=== PATIENT | male | born 1970 | race Caucasian/White ===

== ENCOUNTER 2017-12-05 18:26 | Inpatient (IN) ==
[2017-12-05] MEDS ORDERED: Haloperidol Lactate 5 MG/ML VIAL IM PRN (18:45)
[2017-12-05] MEDS ORDERED: MOM Conc 10 ML UD.LIQ PO PRN (18:45)
[2017-12-05] MEDS ORDERED: Mag Hydrox/Al Hydrox/Simeth 30 ML UDC PO PRN (18:45)
[2017-12-05] MEDS ORDERED: *HR* LORazepam 2 MG/ML VIAL IM PRN (18:45)
[2017-12-05] MEDS ORDERED: Acetaminophen 325 MG TABLET PO PRN (18:45)
[2017-12-05] MEDS ORDERED: *HR* LORazepam 1 MG TABLET PO PRN (18:45)
[2017-12-05] MEDS: traZODone 50 MG TABLET PO PRN (20:10)
[2017-12-05] MEDS: hydrOXYzine pamoate 25 MG CAPSULE PO PRN (20:10)
[2017-12-06] MEDS: Nicotine 21 MG PATCH.TD24 TD SCH (09:09)
[2017-12-06] MEDS: Nicotine 2 MG GUM BC PRN ×3 (10:30→19:10)
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
[2017-12-06] MEDS: BuPROPion SR (12 HR) 100 MG TABLET PO SCH ×2 (11:50→21:02)
[2017-12-06 14:03] LABS: Hepatitis B Surface Antigen Nonreactive (Nonreactive)
[2017-12-06] MEDS: hydrOXYzine pamoate 25 MG CAPSULE PO PRN (19:10)
[2017-12-06] MEDS: traZODone 50 MG TABLET PO PRN (21:02)
[2017-12-07 05:28] LABS: Hepatitis A Antibody IgM Nonreactive (Nonreactive); Hepatitis B Core IgM Nonreactive (Nonreactive)
[2017-12-07 05:43] LABS: Hepatitis C Virus Antibody Reactive (Nonreactive)
[2017-12-07] MEDS: Nicotine 2 MG GUM BC PRN ×4 (08:56→21:01)
[2017-12-07] MEDS: BuPROPion SR (12 HR) 100 MG TABLET PO SCH ×2 (08:56→21:02)
[2017-12-07] MEDS: Nicotine 21 MG PATCH.TD24 TD SCH (10:18)
[2017-12-07] MEDS: hydrOXYzine pamoate 25 MG CAPSULE PO PRN ×2 (11:48→21:02)
--- NOTE | 2017-12-07 14:48 | Psychiatry Progress Note ---
Date of Encounter: 12/07/17 Time of Encounter: 14:40 Subjective Interval history: When I asked the patient how he is doing today he tells me "I am alright". He denies any adverse side effects of the Wellbutrin. He states that he slept approximate 2 hours total last evening, which has been consistently reported by him outpatient prior to admission. He states that he woke up feeling depressed this morning; santana and at times crying. This is not unusual for him, "mornings are bit worse than any other time of the day". I discussed with them using the PRN Trazodone and Vistaril to help with his sleep. He tells me he will give that a try to see if it helps. He states that he feels like he just cannot calm down, especially at night when he is trying to go to sleep. "I can' t shut my mind off. He denies any active suicidal/homicidal ideation, but states that he does not overall feel much better than he did upon admission. He still feels fairly helpless and hopeless, but is willing to give the medication on a try. He denies any auditory or visual hallucinations. He has showered and is eating meals and interacting with others on the unit. Staff report him to be uncooperative and irritable in the mornings, especially. Objective: Exam Patient orientation: Yes Person, Yes Time, Yes Place, Yes Circumstance Level of alertness: Alert Patient appearance: Well Groomed Behavior: anxious Psychomotor activity: Normal Eye contact: Maintains Eye Contact Mood description: Depressed Affect description: congruent with mood Speech pattern: Normal rate, Normal rhythm, Normal tone Speech volume: Normal Thought process: Intact, Logical, Linear Thought content: Yes Suicidal ideation (no active plans) Judgment: Fair Insight: Partial Results - Vital Signs Vital Signs: Temp Pulse Resp BP 97.2 F L 61 18 115/76 12/07/17 08:48 12/07/17 08:48 12/07/17 08:48 12/07/17 08:48 - Labs Labs: Laboratory Results - last 24 hr 12/06/17 12/06/17 13:08 13:08 Hepatitis A IgM Ab Nonreactive Hep B Core IgM Ab Nonreactive Hepatitis C Ab Screen Reactive H HIV Ag/Ab Combo Qual Nonreactive - Impressions Will continue to monitor patient on the unit for S/S of his mental health. It is appearing that he may possibly be Bipolar as I continue to learn and observe more with him and he is better able to give more information and details. It would also appear that he does have Hepatitis C from his lab work. I will discuss this with him further and get follow up arranged with medical. Assessment and Plan (1) Major depression, recurrent, chronic Current visit: Yes Status: Acute Plan: Continue hospitalization, Close observation, Suicide Precautions per unit protocol, Encourage participation in unit milieu, Group Therapy, Monitor sleep, Monitor appetite Risks, benefits, side effects, alternatives discussed w/pt: Yes (Continue Wellbutrin and encourage PRN usage) Patient agreeable to treatment: Yes (2) Post traumatic stress disorder (PTSD) Current visit: Yes Status: Acute Plan: Continue hospitalization, Close observation Risks, benefits, side effects, alternatives discussed w/pt: Yes Patient agreeable to treatment: Yes (3) Amphetamine abuse, episodic Current visit: Yes Status: Acute Plan: Close observation Risks, benefits, side effects, alternatives discussed w/pt: Yes Patient agreeable to treatment: Yes Consult Discharge Plan - Plan [facility]errals: [facility] [Outside] (You are going into mental health respite at [facility] on discharge from the hospital. While there, clinic staff will open a case for you to become a client, and you will be seen daily by the clinic counselors and mattress spring encaser, both individually and in group. You will also be scheduled to see the psychiatric provider for outpatient psychiatric assessment and medication management.)
[2017-12-07] MEDS: traZODone 50 MG TABLET PO PRN (21:01)
[2017-12-08] MEDS: hydrOXYzine pamoate 25 MG CAPSULE PO PRN ×3 (07:06→20:36)
[2017-12-08] MEDS: Nicotine 2 MG GUM BC PRN ×4 (07:08→18:23)
[2017-12-08] MEDS: BuPROPion SR (12 HR) 100 MG TABLET PO SCH ×2 (08:01→20:36)
--- NOTE | 2017-12-08 13:27 | Psychiatry Progress Note ---
Date of Encounter: 12/08/17 Time of Encounter: 13:00 Subjective Interval history: When asked the patient how things are he tells me "same as yesterday, no sleep" . He tells me that he used the PRN's of trazodone Vistaril, but they did not help. He states that he continues to have racing thoughts, especially at night , and feels very anxious throughout the day. He is not experiencing nightmares spcifically at night currently. He denies any active suicidal ideation, but states that he still feels depressed and very santana. He denies any auditory or visual hallucinations. I spoke with him about possibly adding some medication to help with sleep that would also help with his mood. We discussed that discuss the use of Seroquel. I discussed starting at a low-dose 50 mg at night instead of taking the trazodone, targeting his mood and it would potentially help him sleep. I also advised him to use a low-dose 25 mg PO during the day has needed when he felt agitated, to see if it helped calm his mood and calm his mind. He was agreeable to doing this after reviewing the risks benefits and side effects. Objective: Exam Patient orientation: Yes Person, Yes Time, Yes Place, Yes Circumstance Level of alertness: Alert Patient appearance: Appropriate, Well Groomed Behavior: anxious Psychomotor activity: Agitated (mildly) Eye contact: Maintains Eye Contact Mood description: Depressed Affect description: congruent with mood Speech pattern: Normal rate, Normal rhythm, Normal tone Speech volume: Normal Thought process: Intact, Logical, Linear Thought content: Yes Intact Judgment: Fair Insight: Partial Results - Vital Signs Vital Signs: Temp Pulse Resp BP 97.6 F 62 16 119/78 12/08/17 08:06 12/08/17 08:06 12/08/17 08:06 12/08/17 08:06 - Impressions R/O Bipolar Disorder Assessment and Plan (1) Major depression, recurrent, chronic Current visit: Yes Status: Acute Risks, benefits, side effects, alternatives discussed w/pt: Yes (Start Wellbutrin) Patient agreeable to treatment: Yes (2) Post traumatic stress disorder (PTSD) Current visit: Yes Status: Acute Risks, benefits, side effects, alternatives discussed w/pt: Yes Patient agreeable to treatment: Yes (3) Amphetamine abuse, episodic Current visit: Yes Status: Acute Risks, benefits, side effects, alternatives discussed w/pt: Yes Patient agreeable to treatment: Yes Consult Discharge Plan - Plan Referrals: [facility] [Outside] (You are going into mental health respite at [facility] on discharge from the hospital. While there, clinic staff will open a case for you to become a client, and you will be seen daily by the clinic counselors and case operator, both individually and in group. You will also be scheduled to see the psychiatric provider for outpatient psychiatric assessment and medication management.)
[2017-12-08] MEDS: traZODone 50 MG TABLET PO PRN (20:36)
[2017-12-09] MEDS: hydrOXYzine pamoate 25 MG CAPSULE PO PRN ×3 (02:59→20:01)
[2017-12-09] MEDS: Nicotine 2 MG GUM BC PRN ×2 (08:15→20:01)
[2017-12-09] MEDS: BuPROPion SR (12 HR) 100 MG TABLET PO SCH ×2 (08:15→20:01)
--- NOTE | 2017-12-09 13:27 | Psychiatry Progress Note ---
Date of Encounter: 12/09/17 Time of Encounter: 13:15 Subjective Interval history: Patient tells me that he slept better last night with the addition of Seroquel. He slept approximate 5 hours from 10:00 pm to about 3:00 in the morning. He felt tired and went to sleep without issue. Once he woke up, he could not go back to sleep easily. He denies any side effects of the Seroquel. He states that he is still having some anxiety; feels agitated during the day. He notices hes very irritable around others on the unit, staff and other peers included. "I've not cussed anybody yet today, but I feel like it". He denies any auditory or visual hallucinations. Depression is still present, but he is not as hopeless as he was. No active suicidal plan. He was encouraged to use prn's for his agitation. Objective: Exam Patient orientation: Yes Person, Yes Time, Yes Place, Yes Circumstance Level of alertness: Alert Patient appearance: Appropriate, Well Groomed Behavior: anxious, tearful Psychomotor activity: Normal Eye contact: Maintains Eye Contact Mood description: Depressed, Anxious Affect description: congruent with mood Speech pattern: Normal rate, Normal rhythm, Normal tone Speech volume: Normal Thought process: Intact, Linear Thought content: Yes Intact Judgment: Fair Insight: Partial Results - Vital Signs Vital Signs: Temp Pulse Resp BP 97.4 F L 61 18 118/82 12/09/17 08:14 12/09/17 08:14 12/09/17 08:14 12/09/17 08:14 Assessment and Plan (1) Post traumatic stress disorder (PTSD) Current visit: Yes Status: Acute Risks, benefits, side effects, alternatives discussed w/pt: Yes Patient agreeable to treatment: Yes (2) Amphetamine abuse, episodic Current visit: Yes Status: Acute Risks, benefits, side effects, alternatives discussed w/pt: Yes Patient agreeable to treatment: Yes (3) Bipolar disorder, mixed Current visit: Yes Status: Acute Plan: Continue hospitalization, Close observation, Suicide Precautions per unit protocol, Encourage participation in unit milieu, Group Therapy, Monitor sleep Risks, benefits, side effects, alternatives discussed w/pt: Yes (Continue Seroquel for mood stabilization) Patient agreeable to treatment: Yes Consult Discharge Plan - Plan Referrals: [facility] [Outside] (You are going into mental health respite at [facility] on discharge from the hospital. While there, clinic staff will open a case for you to become a client, and you will be seen daily by the clinic counselors and case monitor, both individually and in group. You will also be scheduled to see the psychiatric provider for outpatient psychiatric assessment and medication management.)
[2017-12-09] MEDS: traZODone 50 MG TABLET PO PRN (20:01)
[2017-12-10] MEDS: BuPROPion SR (12 HR) 100 MG TABLET PO SCH ×2 (08:41→20:53)
[2017-12-10] MEDS: Nicotine 2 MG GUM BC PRN ×3 (08:41→20:53)
--- NOTE | 2017-12-10 12:38 | Psychiatry Progress Note ---
Date of Encounter: 12/10/17 Time of Encounter: 10:20 Subjective Interval history: Patient tells me "I feel tons better". He states that he continues to improve on his sleeping, noticing the better that he sleeps the better his mood becomes. (his observation/interpretation) He also is taken Seroquel 25 mg PO during the day to help with his agitation, anxiety and mood stabilization. He believes that an increase in the Seroquel to 100 mg at night he would not use the trazodone anymore and would still sleep well. I question whether the agitation during the day might be related to Akathesia from the antipsychotic. I encouraged him to use Cogentin as a PRN to see if it helped. He denies any active suicidal or homicidal ideation. He does have passive thoughts of dying still. He is eating fine and participating sporadically on the unit with groups. He is less angry today with one of the other patients on the unit because he believes he is discharging. He talks to me about people not being appropriate and that their are right things and wrong thing in how one behaves. Talks about his intolerant [id number] thinking, not being open to things outside of his thought and how he believes things should be. He struggles with signing in voluntarily, 72 hour hold is up today. His thinking is that, if he does sign in voluntarily, that he is going to be stuck here for 2 weeks or longer and has no control over his discharge. I explained to him that he was stabilizing and it was not any kind of trick to have him sign in. That with the further adjustments in his medication, most likely he would be discharged within the next day or 2. He finally ended up signing in voluntarily. No auditory or visual hallucinations. No other complaints. Objective: Exam Patient orientation: Yes Person, Yes Time, Yes Circumstance Level of alertness: Alert Patient appearance: Appropriate, Well Groomed Behavior: anxious, agitated Psychomotor activity: Normal Eye contact: Fleeting Contact Mood description: Anxious Affect description: congruent with mood Speech pattern: Normal rate, Normal rhythm, Normal tone Speech volume: Normal Thought process: Intact Thought content: Yes Suicidal ideation (fleeting thoughts but no intent or plan. ) Judgment: Fair Insight: Partial Results - Vital Signs Vital Signs: Temp Pulse Resp BP 97.7 F 72 18 118/77 12/10/17 09:00 12/10/17 09:00 12/10/17 09:00 12/10/17 09:00 Assessment and Plan (1) Post traumatic stress disorder (PTSD) Current visit: Yes Status: Acute Risks, benefits, side effects, alternatives discussed w/pt: Yes Patient agreeable to treatment: Yes (2) Amphetamine abuse, episodic Current visit: Yes Status: Acute Risks, benefits, side effects, alternatives discussed w/pt: Yes Patient agreeable to treatment: Yes (3) Bipolar disorder, mixed Current visit: Yes Status: Acute Plan: Continue hospitalization, Close observation, Suicide Precautions per unit protocol, Encourage participation in unit milieu, Group Therapy, Monitor sleep Risks, benefits, side effects, alternatives discussed w/pt: Yes (Increase Seroquel for mood stabilization) Patient agreeable to treatment: Yes Consult Discharge Plan - Plan Referrals: [facility] [Outside] (You are going into mental health respite at [facility] on discharge from the hospital. While there, clinic staff will open a case for you to become a client, and you will be seen daily by the clinic counselors and medical case manager, both individually and in group. You will also be scheduled to see the psychiatric provider for outpatient psychiatric assessment and medication management.)
[2017-12-10] MEDS: hydrOXYzine pamoate 25 MG CAPSULE PO PRN ×2 (16:54→20:53)
[2017-12-10] MEDS: traZODone 50 MG TABLET PO PRN (20:53)
[2017-12-11] MEDS: BuPROPion SR (12 HR) 100 MG TABLET PO SCH (08:28)
[2017-12-11 09:26] VITALS: BP 115/74
[2017-12-11] MEDS: Nicotine 2 MG GUM BC PRN (10:50)
--- NOTE | 2017-12-11 11:30 | Discharge Summary ---
Date of Encounter: 12/11/17 Time of Encounter: 11:10 Diagnosis - Discharge Diagnosis (1) Post traumatic stress disorder (PTSD) Status: Acute (2) Amphetamine abuse, episodic Status: Acute (3) Bipolar disorder, mixed Status: Acute Medications - Discharge Medications Prescriptions: Benztropine [Cogentin] 1 mg PO Q4H PRN 30 Days #60 tablet PRN Reason: Extrapyramidal Effects BuPROPion SR (12 HR) [Wellbutrin SR] 100 mg PO BID 30 Days #60 tablet.er hydrOXYzine pamoate [HydrOXYzine Pamoate] 25 mg PO TID PRN 30 Days #90 capsule PRN Reason: Anxiety Quetiapine Fumarate [Seroquel] 25 mg PO QDPC PRN 30 Days #30 tablet PRN Reason: Agitation Quetiapine Fumarate [Seroquel] 100 mg PO HS 30 Days #30 tablet Benztropine [Cogentin] 1 mg PO Q4H PRN 30 Days #60 tablet 12/11/17 [Rx] BuPROPion SR (12 HR) [Wellbutrin SR] 100 mg PO BID 30 Days #60 tablet.er [Rx] Quetiapine Fumarate [Seroquel] 25 mg PO QDPC PRN 30 Days #30 tablet 12/11/17 [Rx ] Quetiapine Fumarate [Seroquel] 100 mg PO HS 30 Days #30 tablet 12/11/17 [Rx] hydrOXYzine pamoate [HydrOXYzine Pamoate] 25 mg PO TID PRN 30 Days #90 capsule 12/11/17 [Rx] 3 Allergy/AdvReac Type Severity Reaction Status Date / Time No Known Allergies Allergy Verified 12/05/17 18:44 Results Procedures and tests throughout hospitalization: Completed Lab Orders Category Date Time Status HIV-1&2 Antibody & p24 Ag Stat Lab 12/06/17 13:08 Completed Viral hepatitis panel [Hepatitis Prof.(Routine A,B,C)] Lab 12/06/17 13:08 Completed Routine - Impressions Hepatitis C/Newly diagnosed: Appointment scheduled for follow up and medical evaluation. Discussed with patient. Most likely got it in residential from residential tattoo. Uses clean needles for drugs, historically. Provider Date of admission: 12/05/17 18:26 Primary care physician: PCP NONE Assessment and Plan - Patient/Caregiver Discharge Instructions Activity: resume usual activities as tolerated Diet: regular diet - Follow up Plan Follow up with: [facility] [Outside] (You are going into mental health respite at [facility] on discharge from the hospital. While there, clinic staff will open a case for you to become a client, and you will be seen daily by the clinic counselors and supportive employment case manager, both individually and in group. You will also be scheduled to see the psychiatric provider for outpatient psychiatric assessment and medication management.) Tanja De La Fuente [Advanced Practice Nurse] - 12/17/17 11:00 am (The above appointment is with Tanja De La Fuente CNP, at [facility]. This appointment is to establish you with a primary care provider. Your needs for medication and/or Vivitrol will be assessed and treated as indicated as well. Please arrive 15 minutes early to complete paperwork. Please bring your insurance card, photo ID and list of current medications to your first appointment. The above appointment(s) reflects first availability. You may contact the office regularly to check for cancellations that may allow you to be seen sooner.) Functional capacity at discharge: independent ambulation Overall status at discharge: Stable Disposition: Transfer Other Hospital Course Hospital course: Mr. Aguirre is a 47 year old male who was admitted after having an unstable mood and that's of self harm. He had a history of amphetamine abuse and unstable depressed and agitated mood. He had recent losses in his life of of spouse and feelings of being worthless. He had negative self talk and decreased sleeping ability. Medications were started and adjusted targeting his mood. Seroquel helped with his day time agitation as a prn during the day and was titrated up at night to help with his sleep. He still had struggles with staff and feeling irritable and questioning why he was in the hospital and where his future was going. Eventually it helped with his sleeping allowing him to get a solid 5 hours the night prior to discharge. "It's a helluva lot better than what I was getting." The Wellbutrin was added targeting his depression and feelings of low energy and feeling hopeless. He noted the day of discharge that "I am feeling better." He reported his depression had decreased "greatly". He had more energy and was thinking about the future and doing things he had not done in a long time. His anhedonia was resolving and his energy and forward thinking were improving. Juan Jose helped with his anxiety at times which may have been akathesia. He was discharging to [facility] for further monitoring and treatemnt as he did not want to discharge home and could get further counseling and drug counseling and more coping skills. He denied SI/SIB/HI. He denied mood swings and A/V hallucinations. WE discussed him working further on his negative self talk while at [facility]. Time spent discussing smoking cessation with patient: 3 to 10 minutes Does patient wish to continue nicotine replacement upon disc: No - Time Spent with Patient Total time spent providing and/or coordinating discharge services: 25 min Less than 30 minutes Quality - Multiple Antipsychotics Patient discharged on 2 or more antipsychotic medications: No Procedures - Procedures Procedures: Medication Management, Crisis Stabilization, Supportive Therapy, Group Therapy, Psychoeducational Therapy Mental Status Exam - Mental Status Exam Patient orientation: Yes Person, Yes Time, Yes Place, Yes Circumstance Level of alertness: Alert Patient appearance: Appropriate, Well Groomed Behavior: nervous Psychomotor activity: Normal Eye contact: Maintains Eye Contact Mood description: Euthymic/stable Patient description of mood: "I'm feeling better" Affect description: congruent with mood Speech pattern: Normal rate, Normal rhythm, Normal tone, Appropriate Speech Volume: Normal Thought process: Intact, Linear, Goal Oriented Thought Content: Yes Intact Judgment: Good Insight: Partial
== END 2017-12-11 12:55 | disposition other institution (70) | DRG 753 ==
LOC: 1ANU 18:26
PROVIDERS: ADMIT Psychiatry & Neurology Psychiatry; ATTEND Psychiatry & Neurology Psychiatry

== ENCOUNTER 2018-03-13 11:28 | Inpatient (IN) ==
[2018-03-13 12:35] LABS: Basophils # 0.1 K/mcL (0.0-0.2); Basophils % 0.7 %; Eosinophils # 0.2 K/mcL (0.0-0.6); Eosinophils % 3.1 %; Hematocrit 42.2 % (37.5-50.1); Hemoglobin 14.1 g/dL (12.9-16.9); Immature Granulocytes % 0.1 % (0-4); Lymphocytes # 3.5 K/mcL (0.6-4.6); Lymphocytes % 49.4 %; Mean Corpuscular HGB Conc 33.4 g/dL (31.6-35.5); Mean Corpuscular Hemoglobin 29.5 pg (28.0-33.3); Mean Corpuscular Volume 88.3 fL (83.0-100.0); Mean Platelet Volume 9.4 fL (9.4-12.4); Monocytes # 0.5 K/mcL (0.0-1.3); Monocytes % 6.9 %; Neutrophils # 2.8 K/mcL (1.6-8.9); Platelet Count 233 K/mcL (140-400); Red Blood Count 4.78 M/mcL (4.19-5.50); Red Cell Distribution Width 12.3 % (11.5-14.5); Segmented Neutrophils % 39.8 %
--- NOTE | 2018-03-13 13:00 | Emergency Department Note ---
Disposition Clinical Impression: Homicidal ideation, Suicidal ideation, Auditory hallucinations Disposition: Admitted As Inpatient Condition: Good Referrals: NONE,PCP [Primary Care Provider] - Forms: ED Satisfaction Letter Psych HPI - General Chief Complaint: ED Psychiatric Symptoms Stated Complaint: psych Time Seen by Provider: 03/13/18 11:42 Source: patient Mode of arrival: private vehicle Limitations: no limitations Nursing Notes Reviewed: Yes Vital Signs Reviewed: Yes - History of Present Illness HPI Narrative: 48-year-old male history of depression, schizoaffective disorder presents to the ER with a chief complaint of homicidal and suicidal ideation. Patient states his depression has been worsening lately despite taking his medications. States that this happened before requiring hospitalization when he was having thoughts of harming himself and others. He also reports chronic auditory and visual hallucinations. He states that he has been taking his medications. Reports a prior history of alcohol abuse but nothing recently. He also states that he used ice 2 days ago. Denies any ingestions. Denies any recent illnesses. No other complaints. Pt complaint: suicidal ideation Onset (ago): week(s) Duration: constant History of similar episodes: Yes Improves with: none Worsens with: none Alleged intoxication: No Associated Psychiatric Symptoms: depression, suicidal ideation, homicidal ideation, racing thoughts, auditory hallucinations, visual hallucinations Associated symptoms: Reports: denies other symptoms Traumatic symptoms: denies traumatic injury Treatments prior to arrival: none Self harm or harm to others: admits thoughts of self harm, admits thoughts of harming others - Related Data Home Medications Medication Instructions Recorded Confirmed BuPROPion XL (24 HR) [Wellbutrin 300 mg PO DAILY 03/13/18 03/13/18 XL] Quetiapine Fumarate [SEROquel] 25 mg PO QAM 03/13/18 03/13/18 Quetiapine Fumarate [SEROquel] 225 mg PO HS 03/13/18 03/13/18 cloNIDine HCl [CloNIDine HCl] 0.1 mg PO DAILY 03/13/18 03/13/18 hydrOXYzine pamoate [HydrOXYzine 50 mg PO TID PRN 03/13/18 03/13/18 Pamoate] Allergies Allergy/AdvReac Type Severity Reaction Status Date / Time No Known Allergies Allergy Verified 03/13/18 15:20 All systems ED: reviewed and negative except as stated. Gastrointestinal: Denies: nausea, vomiting Neurological: Denies: headache Psychiatric: Reports: depression, suicidal thoughts, homicidal thoughts, auditory hallucinations, visual hallucinations Past Medical History - Past Medical History Attestation: Yes The following information was validated with the patient. Source: patient Medical history: Reports: hypertension, other Surgical history: Reports: cholecystectomy Psychiatric history: Reports: depression, prior suicide attempt, previous psychiatric hospitalization - Social History Smoking Status: Current every day smoker Smokeless Tobacco Status: No Alcohol use: Reports: occasionally Drug use: Reports: cocaine, opiates, marijuana, methamphetamine, IV Drug Use Physical Exam - General Limitations: no limitations General appearance: alert, anxious - Head Head exam: atraumatic, normocephalic - Eye Eye exam: Present: normal appearance - ENT ENT exam: normal exam - Neck Neck exam: Present: normal inspection - Chest Chest inspection: Present: normal inspection, symmetric chest wall rise - Respiratory Respiratory exam: Present: normal lung sounds bilaterally - Cardiovascular Cardiovascular exam: Present: regular rate, normal rhythm, normal heart sounds - Abdominal Exam Abdominal exam: Present: soft, Non-Tender. Absent: tenderness - Extremities Exam Extremities exam: Present: normal inspection, full ROM - Expanded Upper Extremity Exam Shoulder exam: Present: normal inspection, full ROM Arm exam: Present: normal inspection, full ROM Elbow exam: Present: normal inspection, full ROM Forearm/Wrist exam: Present: normal inspection, full ROM Hand exam: Present: normal inspection, full ROM - Expanded Lower Extremity Exam Hip/Pelvis exam: Present: normal inspection, full ROM Upper leg exam: Present: normal inspection, full ROM Knee exam: Present: normal inspection, full ROM Lower leg exam: Present: normal inspection, full ROM Ankle exam: Present: normal inspection, full ROM Foot/toe exam: Present: normal inspection, full ROM - Psychiatric Psychiatric exam: Present: anxious, homicidal ideation, suicidal ideation - Expanded Psychiatric Exam Expanded psych exam: Present: poor eye contact, restlessness - Skin Skin exam: Present: warm, dry Course Course Narrative: Patient seen and examined. [employer] slipped signed for homicidal and suicidal ideation. We will get screening labs for medical clearance and discussed with psychiatry for ED evaluation. Vital Signs Temperature 98.2 F 03/13/18 11:36 Pulse Rate 81 03/13/18 11:36 Respiratory Rate 16 03/13/18 11:36 Blood Pressure 132/83 03/13/18 11:36 O2 Sat by Pulse Oximetry 96 03/13/18 11:36 Temperature 98.2 F 03/13/18 11:36 Pulse Rate 81 03/13/18 11:36 Respiratory Rate 16 03/13/18 11:36 Blood Pressure 132/83 03/13/18 11:36 O2 Sat by Pulse Oximetry 96 03/13/18 11:36 Oxygen Delivery Oxygen Delivery Room Air Psych - MDM Narrative Medical decision making narrative: Presenting with suicidal and homicidal ideation. Prior psychiatric history. Medically cleared here. Deemed appropriate for inpatient management. Admitted to the psychiatric service. - Lab Data Lab results reviewed: Yes I reviewed the patient's lab results. Result diagrams: 03/13/18 12:22 03/13/18 12:22 Lab Results 03/13/18 03/13/18 03/13/18 Range/Units 12:22 12:22 12:52 WBC 7.1 (4.3-11.1) K/mcL RBC 4.78 (4.19-5.50) M/mcL Hgb 14.1 (12.9-16.9) g/dL Hct 42.2 (37.5-50.1) % MCV 88.3 (83.0-100.0) fL MCH 29.5 (28.0-33.3) pg MCHC 33.4 (31.6-35.5) g/dL RDW 12.3 (11.5-14.5) % Plt Count 233 (140-400) K/mcL MPV 9.4 (9.4-12.4) fL Immature Gran % 0.1 (0-4) % Seg Neutrophils % 39.8 % Lymphocytes % 49.4 % Monocytes % 6.9 % Eosinophils % 3.1 % Basophils % 0.7 % Neutrophils # 2.8 (1.6-8.9) K/mcL Lymphocytes # 3.5 (0.6-4.6) K/mcL Monocytes # 0.5 (0.0-1.3) K/mcL Eosinophils # 0.2 (0.0-0.6) K/mcL Basophils # 0.1 (0.0-0.2) K/mcL Sodium 135 L (136-145) mEq/L Potassium 4.4 (3.5-5.1) mEq/L Chloride 108 H (98-107) mEq/L Carbon Dioxide 24 (23-29) mEq/L BUN 19 (6-20) mg/dL Creatinine 0.63 L (0.70-1.30) mg/dL Est GFR ( Amer) > 60 (> 60) Est GFR (Non-Af Amer) > 60 (> 60) BUN/Creatinine Ratio 30 H (6-26) Glucose 97 (70-105) mg/dL Calculated Osmolality 282 (280-300) Calcium 9.2 (8.6-10.3) mg/dL TSH 2.475 (0.340-5.600) mcIU/mL Urine Color Yellow (Yellow) Urine Clarity Cloudy A (Clear) Urine pH 6.0 (5.0-8.0) pH Units Ur Specific [place] > 1.030 H (1.010-1.025) Urine Protein Trace (Neg-Trace) mg/dL Urine Glucose (UA) Normal (Normal) mg/dL Urine Ketones Negative (Negative) mg/dL Urine Blood Negative (Negative) Urine Nitrite Negative (Negative) Urine Bilirubin Negative (Negative) Urine Urobilinogen Normal (Normal) mg/dL Ur Leukocyte Esterase Negative (Negative) Urine Microscopic RBC 5-15 H (0-3) per hpf Urine Microscopic WBC 5-15 H (0-3) per hpf Ur Squamous Epith Cells Moderate H (None-Few) per lpf Urine Bacteria None Seen (None-Few) per hpf Hyaline Casts None Seen (None-Few) per lpf Urine Sperm Present Salicylates < 2.5 L (15.0-30.0) mg/dL Urine Opiates Screen (Qwtwym=402) ng/mL Acetaminophen < 10 L (10-20) mcg/mL Ur Barbiturates Screen (Fbnsho=846) ng/mL Ur Phencyclidine Scrn (Cutoff=25) ng/mL Ur Amphetamines Screen (Gibtje=0090) ng/mL U Benzodiazepines Scrn (Kfrzvm=865) ng/mL Urine Cocaine Screen (Cutoff= 300) ng/mL U Marijuana (THC) Screen (Cutoff = 50) ng/mL Ethyl Alcohol < 10 (Less than 10) mg/dL 03/13/18 Range/Units 12:53 WBC (4.3-11.1) K/mcL RBC (4.19-5.50) M/mcL Hgb (12.9-16.9) g/dL Hct (37.5-50.1) % MCV (83.0-100.0) fL MCH (28.0-33.3) pg MCHC (31.6-35.5) g/dL RDW (11.5-14.5) % Plt Count (140-400) K/mcL MPV (9.4-12.4) fL Immature Gran % (0-4) % Seg Neutrophils % % Lymphocytes % % Monocytes % % Eosinophils % % Basophils % % Neutrophils # (1.6-8.9) K/mcL Lymphocytes # (0.6-4.6) K/mcL Monocytes # (0.0-1.3) K/mcL Eosinophils # (0.0-0.6) K/mcL Basophils # (0.0-0.2) K/mcL Sodium (136-145) mEq/L Potassium (3.5-5.1) mEq/L Chloride (98-107) mEq/L Carbon Dioxide (23-29) mEq/L BUN (6-20) mg/dL Creatinine (0.70-1.30) mg/dL Est GFR ( Amer) (> 60) Est GFR (Non-Af Amer) (> 60) BUN/Creatinine Ratio (6-26) Glucose (70-105) mg/dL Calculated Osmolality (280-300) Calcium (8.6-10.3) mg/dL TSH (0.340-5.600) mcIU/mL Urine Color (Yellow) Urine Clarity (Clear) Urine pH (5.0-8.0) pH Units Ur Specific [place] (1.010-1.025) Urine Protein (Neg-Trace) mg/dL Urine Glucose (UA) (Normal) mg/dL Urine Ketones (Negative) mg/dL Urine Blood (Negative) Urine Nitrite (Negative) Urine Bilirubin (Negative) Urine Urobilinogen (Normal) mg/dL Ur Leukocyte Esterase (Negative) Urine Microscopic RBC (0-3) per hpf Urine Microscopic WBC (0-3) per hpf Ur Squamous Epith Cells (None-Few) per lpf Urine Bacteria (None-Few) per hpf Hyaline Casts (None-Few) per lpf Urine Sperm Salicylates (15.0-30.0) mg/dL Urine Opiates Screen Negative (Ficxjb=716) ng/mL Acetaminophen (10-20) mcg/mL Ur Barbiturates Screen Negative (Unfubo=729) ng/mL Ur Phencyclidine Scrn Negative (Cutoff=25) ng/mL Ur Amphetamines Screen Positive H (Chwejh=2471) ng/mL U Benzodiazepines Scrn Negative (Iaqqrj=967) ng/mL Urine Cocaine Screen Negative (Cutoff= 300) ng/mL U Marijuana (THC) Screen Negative (Cutoff = 50) ng/mL Ethyl Alcohol (Less than 10) mg/dL Psychiatric Medical Clearance - Medical Clearance Checklist Medical History: Major depression, recurrent, chronic (Acute) Post traumatic stress disorder (PTSD) (Acute) Amphetamine abuse, episodic (Acute) Bipolar disorder, mixed (Acute) Anxiety disorder (Inactive) Panic attacks (Inactive) Secondary hypertension (Inactive) No Social History Section defined Current Vitals: Last Vital Signs Temp 98.2 F 03/13/18 11:36 Pulse 81 03/13/18 11:36 Resp 16 03/13/18 11:36 BP 132/83 03/13/18 11:36 Pulse Ox 96 03/13/18 11:36 Psychiatric Lab Panel: Drug Levels and Toxicity 03/13/18 03/13/18 12:22 12:53 Urine Opiates Screen Negative Acetaminophen < 10 L Ur Barbiturates Screen Negative Ur Phencyclidine Scrn Negative Ur Amphetamines Screen Positive H U Benzodiazepines Scrn Negative Urine Cocaine Screen Negative U Marijuana (THC) Screen Negative Ethyl Alcohol < 10 Abnormal Labs: Abnormal lab results Sodium 135 mEq/L (136-145) L 03/13/18 12:22 Chloride 108 mEq/L (98-107) H 03/13/18 12:22 Creatinine 0.63 mg/dL (0.70-1.30) L 03/13/18 12:22 BUN/Creatinine Ratio 30 (6-26) H 03/13/18 12:22 Urine Clarity Cloudy (Clear) A 03/13/18 12:52 Ur Specific [place] > 1.030 (1.010-1.025) H 03/13/18 12:52 Urine Microscopic RBC 5-15 per hpf (0-3) H 03/13/18 12:52 Urine Microscopic WBC 5-15 per hpf (0-3) H 03/13/18 12:52 Ur Squamous Epith Cells Moderate per lpf (None-Few) H 03/13/18 12:52 Salicylates < 2.5 mg/dL (15.0-30.0) L 03/13/18 12:22 Acetaminophen < 10 mcg/mL (10-20) L 03/13/18 12:22 Ur Amphetamines Screen Positive ng/mL (Ezqixh=3018) H 03/13/18 12:53 Statement of Medical Clearance: I have evaluated the patient, reviewed diagnostic information, and certify that the patient's medical condition is sufficiently stable that transfer to the psychiatric unit does not pose a significant risk of deterioration.
[2018-03-13 13:03] LABS: Acetaminophen < 10 mcg/mL (10-20); BUN/Creatinine Ratio 30 (6-26); Blood Urea Nitrogen 19 mg/dL (6-20); Calcium 9.2 mg/dL (8.6-10.3); Carbon Dioxide 24 mEq/L (23-29); Chloride 108 mEq/L (98-107); Ethanol < 10 mg/dL (Less than 10); Glucose 97 mg/dL (70-105); Osmolality,Calculated 282 (280-300); Potassium 4.4 mEq/L (3.5-5.1); Salicylate < 2.5 mg/dL (15.0-30.0); Sodium 135 mEq/L (136-145); eGFR For African Americans > 60 (> 60); eGFR For Non-African Americans > 60 (> 60)
[2018-03-13 13:04] LABS: Bilirubin,Urine Negative (Negative); Blood,Urine Negative (Negative); Clarity,Urine Cloudy (Clear); Color,Urine Yellow (Yellow); Glucose,Urine (UA) Normal (Normal); Ketones,Urine Negative (Negative); Leukocyte Esterase,Urine Negative (Negative); Nitrite,Urine Negative (Negative); Protein,Urine Trace mg/dL (Neg-Trace); Specific Gravity,Urine > 1.030 (1.010-1.025); Urobilinogen,Urine Normal (Normal)
[2018-03-13 13:06] LABS: Bacteria,Urine None Seen per hpf (None-Few); Hyaline Casts,Urine None Seen per lpf (None-Few); Squamous Epithelial Cell,Urine Moderate per lpf (None-Few)
[2018-03-13 13:11] LABS: Sperm,Urine Present
[2018-03-13 13:12] LABS: Thyroid Stimulating Hormone 2.475 mcIU/mL (0.340-5.600)
[2018-03-13 13:47] LABS: Amphetamine Screen,Urine Positive ng/mL (Cutoff=1000); Barbiturate Screen,Urine Negative ng/mL (Cutoff=200); Benzodiazepines Screen,Urine Negative ng/mL (Cutoff=200); Cannabinoid Screen,Urine Negative ng/mL (Cutoff = 50); Cocaine Screen,Urine Negative ng/mL (Cutoff= 300); Opiate Screen,Urine Negative ng/mL (Cutoff=300); Phencyclidine Screen,Urine Negative ng/mL (Cutoff=25)
[2018-03-13] MEDS ORDERED: Ibuprofen 400 MG TABLET PO PRN (17:15)
[2018-03-13] MEDS ORDERED: Haloperidol Lactate 5 MG/ML VIAL IM PRN (17:15)
[2018-03-13] MEDS ORDERED: *HR* LORazepam 2 MG/ML VIAL IM PRN (17:15)
[2018-03-13] MEDS ORDERED: Mag Hydrox/Al Hydrox/Simeth 30 ML UDC PO PRN (17:15)
[2018-03-13] MEDS ORDERED: Nicotine 21 MG PATCH.TD24 TD SCH (17:15)
[2018-03-13] MEDS ORDERED: MOM Conc 10 ML UD.LIQ PO PRN (17:15)
[2018-03-13] MEDS: cloNIDine HCl 0.1 MG TABLET PO SCH (18:02)
[2018-03-13] MEDS: Nicotine 2 MG GUM BC PRN (18:02)
--- NOTE | 2018-03-13 18:09 | Emergency Department Note ---
Disposition Clinical Impression: Homicidal ideation, Suicidal ideation, Auditory hallucinations Disposition: Admitted As Inpatient Condition: Good General Adult HPI - General Chief complaint: ED Psychiatric Symptoms Stated complaint: psych Time Seen by Provider: 03/13/18 11:42 Source: patient Mode of arrival: private vehicle Limitations: no limitations - History of Present Illness Pain Scale: 0 - Related Data Home Medications Medication Instructions Recorded Confirmed BuPROPion XL (24 HR) [Wellbutrin 300 mg PO DAILY 03/13/18 03/13/18 XL] Quetiapine Fumarate [SEROquel] 25 mg PO QAM 03/13/18 03/13/18 Quetiapine Fumarate [SEROquel] 225 mg PO HS 03/13/18 03/13/18 cloNIDine HCl [CloNIDine HCl] 0.1 mg PO DAILY 03/13/18 03/13/18 hydrOXYzine pamoate [HydrOXYzine 50 mg PO TID PRN 03/13/18 03/13/18 Pamoate] Allergies Allergy/AdvReac Type Severity Reaction Status Date / Time No Known Allergies Allergy Verified 03/13/18 15:20 Gastrointestinal: Denies: nausea, vomiting Neurological: Denies: headache Psychiatric: Reports: depression, suicidal thoughts, homicidal thoughts, auditory hallucinations, visual hallucinations Past Medical History - Past Medical History Medical history: Reports: hypertension, other Surgical history: Reports: cholecystectomy Psychiatric history: Reports: depression, prior suicide attempt, previous psychiatric hospitalization - Social History Smoking Status: Current every day smoker Smokeless Tobacco Status: No Alcohol use: Reports: rarely Drug use: Reports: methamphetamine Physical Exam - General Limitations: no limitations General appearance: alert, anxious Course Vital Signs Temperature 98.2 F 03/13/18 11:36 Pulse Rate 81 03/13/18 11:36 Respiratory Rate 16 03/13/18 11:36 Blood Pressure 132/83 03/13/18 11:36 O2 Sat by Pulse Oximetry 96 03/13/18 11:36 Temperature 98.3 F 03/13/18 17:10 Pulse Rate 64 03/13/18 17:10 Respiratory Rate 18 03/13/18 17:10 Blood Pressure 125/84 03/13/18 17:10 O2 Sat by Pulse Oximetry 96 03/13/18 11:36 Oxygen Delivery Oxygen Delivery Room Air Medical Decision Making - Lab Data Result diagrams: 03/13/18 12:22 03/13/18 12:22 Lab Results 03/13/18 03/13/18 03/13/18 Range/Units 12:22 12:22 12:52 WBC 7.1 (4.3-11.1) K/mcL RBC 4.78 (4.19-5.50) M/mcL Hgb 14.1 (12.9-16.9) g/dL Hct 42.2 (37.5-50.1) % MCV 88.3 (83.0-100.0) fL MCH 29.5 (28.0-33.3) pg MCHC 33.4 (31.6-35.5) g/dL RDW 12.3 (11.5-14.5) % Plt Count 233 (140-400) K/mcL MPV 9.4 (9.4-12.4) fL Immature Gran % 0.1 (0-4) % Seg Neutrophils % 39.8 % Lymphocytes % 49.4 % Monocytes % 6.9 % Eosinophils % 3.1 % Basophils % 0.7 % Neutrophils # 2.8 (1.6-8.9) K/mcL Lymphocytes # 3.5 (0.6-4.6) K/mcL Monocytes # 0.5 (0.0-1.3) K/mcL Eosinophils # 0.2 (0.0-0.6) K/mcL Basophils # 0.1 (0.0-0.2) K/mcL Sodium 135 L (136-145) mEq/L Potassium 4.4 (3.5-5.1) mEq/L Chloride 108 H (98-107) mEq/L Carbon Dioxide 24 (23-29) mEq/L BUN 19 (6-20) mg/dL Creatinine 0.63 L (0.70-1.30) mg/dL Est GFR ( Amer) > 60 (> 60) Est GFR (Non-Af Amer) > 60 (> 60) BUN/Creatinine Ratio 30 H (6-26) Glucose 97 (70-105) mg/dL Calculated Osmolality 282 (280-300) Calcium 9.2 (8.6-10.3) mg/dL TSH 2.475 (0.340-5.600) mcIU/mL Urine Color Yellow (Yellow) Urine Clarity Cloudy A (Clear) Urine pH 6.0 (5.0-8.0) pH Units Ur Specific [place] > 1.030 H (1.010-1.025) Urine Protein Trace (Neg-Trace) mg/dL Urine Glucose (UA) Normal (Normal) mg/dL Urine Ketones Negative (Negative) mg/dL Urine Blood Negative (Negative) Urine Nitrite Negative (Negative) Urine Bilirubin Negative (Negative) Urine Urobilinogen Normal (Normal) mg/dL Ur Leukocyte Esterase Negative (Negative) Urine Microscopic RBC 5-15 H (0-3) per hpf Urine Microscopic WBC 5-15 H (0-3) per hpf Ur Squamous Epith Cells Moderate H (None-Few) per lpf Urine Bacteria None Seen (None-Few) per hpf Hyaline Casts None Seen (None-Few) per lpf Urine Sperm Present Salicylates < 2.5 L (15.0-30.0) mg/dL Urine Opiates Screen (Otsmhw=132) ng/mL Acetaminophen < 10 L (10-20) mcg/mL Ur Barbiturates Screen (Blunik=224) ng/mL Ur Phencyclidine Scrn (Cutoff=25) ng/mL Ur Amphetamines Screen (Jevnek=2336) ng/mL U Benzodiazepines Scrn (Yngfvv=953) ng/mL Urine Cocaine Screen (Cutoff= 300) ng/mL U Marijuana (THC) Screen (Cutoff = 50) ng/mL Ethyl Alcohol < 10 (Less than 10) mg/dL 03/13/18 Range/Units 12:53 WBC (4.3-11.1) K/mcL RBC (4.19-5.50) M/mcL Hgb (12.9-16.9) g/dL Hct (37.5-50.1) % MCV (83.0-100.0) fL MCH (28.0-33.3) pg MCHC (31.6-35.5) g/dL RDW (11.5-14.5) % Plt Count (140-400) K/mcL MPV (9.4-12.4) fL Immature Gran % (0-4) % Seg Neutrophils % % Lymphocytes % % Monocytes % % Eosinophils % % Basophils % % Neutrophils # (1.6-8.9) K/mcL Lymphocytes # (0.6-4.6) K/mcL Monocytes # (0.0-1.3) K/mcL Eosinophils # (0.0-0.6) K/mcL Basophils # (0.0-0.2) K/mcL Sodium (136-145) mEq/L Potassium (3.5-5.1) mEq/L Chloride (98-107) mEq/L Carbon Dioxide (23-29) mEq/L BUN (6-20) mg/dL Creatinine (0.70-1.30) mg/dL Est GFR ( Amer) (> 60) Est GFR (Non-Af Amer) (> 60) BUN/Creatinine Ratio (6-26) Glucose (70-105) mg/dL Calculated Osmolality (280-300) Calcium (8.6-10.3) mg/dL TSH (0.340-5.600) mcIU/mL Urine Color (Yellow) Urine Clarity (Clear) Urine pH (5.0-8.0) pH Units Ur Specific [place] (1.010-1.025) Urine Protein (Neg-Trace) mg/dL Urine Glucose (UA) (Normal) mg/dL Urine Ketones (Negative) mg/dL Urine Blood (Negative) Urine Nitrite (Negative) Urine Bilirubin (Negative) Urine Urobilinogen (Normal) mg/dL Ur Leukocyte Esterase (Negative) Urine Microscopic RBC (0-3) per hpf Urine Microscopic WBC (0-3) per hpf Ur Squamous Epith Cells (None-Few) per lpf Urine Bacteria (None-Few) per hpf Hyaline Casts (None-Few) per lpf Urine Sperm Salicylates (15.0-30.0) mg/dL Urine Opiates Screen Negative (Bypvfx=420) ng/mL Acetaminophen (10-20) mcg/mL Ur Barbiturates Screen Negative (Dwhvvt=946) ng/mL Ur Phencyclidine Scrn Negative (Cutoff=25) ng/mL Ur Amphetamines Screen Positive H (Rswbxi=3576) ng/mL U Benzodiazepines Scrn Negative (Qbhlgx=992) ng/mL Urine Cocaine Screen Negative (Cutoff= 300) ng/mL U Marijuana (THC) Screen Negative (Cutoff = 50) ng/mL Ethyl Alcohol (Less than 10) mg/dL Attestation Statement - Attestation Attestation: I examined this patient and my medical decision-making was reviewed with the Resident Physician, Dr. Brewster. I agree with the documented findings, disposition and treatment plan as described except to the extent set forth below. Patient is a 48-year-old white male with history of schizophrenia who presents to the emergency department with gradually worsening auditory and visual hallucinations, as well as suicidal and homicidal ideations. Patient states he has been taking medicines as directed that he is just been feeling worse is mildly anxious at bedside. Patient has no physical complaints today. I agree with patient's physical exam findings as documented. Vital signs are stable. Patient's lab evaluation for medical clearance was unremarkable. Patient was evaluated by one a and deemed appropriate for inpatient management. Patient will be transported to for ongoing psychiatric care.
[2018-03-14] MEDS: BuPROPion XL (24 HR) 150 MG TABLET PO SCH (08:54)
[2018-03-14] MEDS: cloNIDine HCl 0.1 MG TABLET PO SCH (08:54)
--- NOTE | 2018-03-14 12:16 | Psychiatry History & Physical ---
Date of Encounter: 03/14/18 Time of Encounter: 12:20 History of Present Illness Patient Stated Chief Complaint: "I don't know, stop asking me." Medicare Admission Attestation: For traditional Medicare patients the provided hospital inpatient services are reasonable and necessary and in the case of services not specified as inpatient -only under 42 CFR 419.22 (n), that they are appropriately provided as inpatient services in accordance 42 CFR 412.3. For Critical Access Hospital the patient may reasonably be expected to be discharged or transferred to a hospital within 96 hours after admission to the Critical Access Hospital. Admitted From: Emergency Dept History of Present Illness: Mr. Aguirre is a 48 year old male with a history of severe depression, PTSD, amphetamine abuse who presented to the hospital with increasing depression symptoms, feeling hopeless and helpless as well as reporting suicidal ideation. He reports that since his last admission in December and [place] [facility] he has noted a significant decline in his overall mood. He feels hopeless about his life and feels like every day is a struggle for him. He does not want to kill himself but at the same time he is considering it because of how depressed he feels. "I am exhausted from feeling this way." He gets very frustrated when he is asked questions about how he is doing. He struggles with the fact that his brother committed suicide about 3-4 months ago. He does not feel like he has much support outside of the hospital. He reports he does not sleep well. He admits to intermittent amphetamine use. He has had thoughts about hanging himself in his garage. Patient denies symptoms of psychosis or leno. He states he is willing to have his medications adjusted but does not necessarily think that will help him. Past Med Surg Social Fam HX - Past Medical History Medical history: hypertension, other - Past Psychiatric History Psychiatric history: Reports: anxiety, depression, previous psychiatric hospitalization, other (Amphetamine use) Past psychiatric history details: Patient has one previous hospitalization in December 2017. He has not followed up with appointments made for him at that time. Family psychiatric history: Yes Family Psychiatric History Details: Brother had depression and committed suicide about 4 months ago. Family History of Suicide: Completed (Brother, by hanging) - Past Surgical History Surgical History: cholecystectomy - Social History Smoking Status: Current every day smoker Smokeless Tobacco Status: No Alcohol use: rarely Drug use: methamphetamine Occupational status: employed Current living situation: Home Medications & Allergies BuPROPion XL (24 HR) [Wellbutrin XL] 300 mg PO DAILY 03/13/18 [History] Quetiapine Fumarate [SEROquel] 25 mg PO QAM 03/13/18 [History] Quetiapine Fumarate [SEROquel] 225 mg PO HS 03/13/18 [History] cloNIDine HCl [CloNIDine HCl] 0.1 mg PO DAILY 03/13/18 [History] hydrOXYzine pamoate [HydrOXYzine Pamoate] 50 mg PO TID PRN 03/13/18 [History] 3 Allergy/AdvReac Type Severity Reaction Status Date / Time No Known Allergies Allergy Verified 03/13/18 15:20 Review of Systems ROS limited: due to patient condition (patient unwilling to answer questions. ) Psychiatric: Reports: depression, anxiety, abnormal sleep pattern, suicidal ideation, change in appetite, difficulty concentrating, hopelessness, irritability, mood swings. Denies: auditory hallucinations, visual hallucinations Exam - HEENT Head exam IM: Present: atraumatic Eye exam IM: Present: EOMI, normal appearance, PERRL ENT exam IM: Present: normal exam - Neurological Neurological exam: Present: CN II-XII intact - Respiratory Respiratory exam IM: Present: CTAB - GI/Abdominal GI/Abdominal exam IM: Present: normal bowel sounds, soft. Absent: tenderness - Extremities Extremities exam IM: Present: full ROM - Skin Skin exam IM: Present: dry, warm - Constitutional Vitals: Temp Pulse Resp BP Pulse Ox 98.1 F 63 18 120/81 96 03/14/18 09:00 03/14/18 09:00 03/14/18 09:00 03/14/18 09:00 03/13/18 11:36 General appearance: age & developmentally appropriate, unkempt, disheveled - Musculoskeletal Gait: normal Station: relaxed Strength & Tone: normal for patient - Psychiatric Patient Orientation: Yes Person, Yes Time, Yes Place Level of alertness: Alert Behavior: restless, uncooperative, withdrawn Psychomotor activity: Normal Eye Contact: Diverts Contact Mood Description: Depressed Affect description: labile, dysphoric Speech Volume: Normal Speech pattern: normal rate, normal rhythm, normal tone Language & Vocabulary: high school level, use of profanity Thought Process: Linear, [place] Thought Content: Yes Suicidal ideation, No Homicidal ideation, No Overt delusions Perceptual Disturbances: No Auditory hallucinations, No Visual hallucinations Attention Span Ability: Capable of Focused Attention Memory Description: Grossly Intact Patient Reliability: Questionable Historian Fund of knowledge: Yes average, Yes aware of current events Intelligence Estimate: Average Judgment: Limited Insight: Minimal Results - Labs Labs: Laboratory Last Values WBC 7.1 K/mcL (4.3-11.1) 03/13/18 12:22 RBC 4.78 M/mcL (4.19-5.50) 03/13/18 12:22 Hgb 14.1 g/dL (12.9-16.9) 03/13/18 12:22 Hct 42.2 % (37.5-50.1) 03/13/18 12:22 MCV 88.3 fL (83.0-100.0) 03/13/18 12:22 MCH 29.5 pg (28.0-33.3) 03/13/18 12:22 MCHC 33.4 g/dL (31.6-35.5) 03/13/18 12:22 RDW 12.3 % (11.5-14.5) 03/13/18 12:22 Plt Count 233 K/mcL (140-400) 03/13/18 12:22 MPV 9.4 fL (9.4-12.4) 03/13/18 12:22 Immature Gran % 0.1 % (0-4) 03/13/18 12:22 Seg Neutrophils % 39.8 % 03/13/18 12:22 Lymphocytes % 49.4 % 03/13/18 12:22 Monocytes % 6.9 % 03/13/18 12:22 Eosinophils % 3.1 % 03/13/18 12:22 Basophils % 0.7 % 03/13/18 12:22 Neutrophils # 2.8 K/mcL (1.6-8.9) 03/13/18 12:22 Lymphocytes # 3.5 K/mcL (0.6-4.6) 03/13/18 12:22 Monocytes # 0.5 K/mcL (0.0-1.3) 03/13/18 12:22 Eosinophils # 0.2 K/mcL (0.0-0.6) 03/13/18 12:22 Basophils # 0.1 K/mcL (0.0-0.2) 03/13/18 12:22 Sodium 135 mEq/L (136-145) L 03/13/18 12:22 Potassium 4.4 mEq/L (3.5-5.1) 03/13/18 12:22 Chloride 108 mEq/L (98-107) H 03/13/18 12:22 Carbon Dioxide 24 mEq/L (23-29) 03/13/18 12:22 BUN 19 mg/dL (6-20) 03/13/18 12:22 Creatinine 0.63 mg/dL (0.70-1.30) L 03/13/18 12:22 Est GFR ( Amer) > 60 (> 60) 03/13/18 12:22 Est GFR (Non-Af Amer) > 60 (> 60) 03/13/18 12:22 BUN/Creatinine Ratio 30 (6-26) H 03/13/18 12:22 Glucose 97 mg/dL (70-105) 03/13/18 12:22 Calculated Osmolality 282 (280-300) 03/13/18 12:22 Calcium 9.2 mg/dL (8.6-10.3) 03/13/18 12:22 TSH 2.475 mcIU/mL (0.340-5.600) 03/13/18 12:22 Urine Color Yellow (Yellow) 03/13/18 12:52 Urine Clarity Cloudy (Clear) A 03/13/18 12:52 Urine pH 6.0 pH Units (5.0-8.0) 03/13/18 12:52 Ur Specific [place] > 1.030 (1.010-1.025) H 03/13/18 12:52 Urine Protein Trace mg/dL (Neg-Trace) 03/13/18 12:52 Urine Glucose (UA) Normal mg/dL (Normal) 03/13/18 12:52 Urine Ketones Negative mg/dL (Negative) 03/13/18 12:52 Urine Blood Negative (Negative) 03/13/18 12:52 Urine Nitrite Negative (Negative) 03/13/18 12:52 Urine Bilirubin Negative (Negative) 03/13/18 12:52 Urine Urobilinogen Normal mg/dL (Normal) 03/13/18 12:52 Ur Leukocyte Esterase Negative (Negative) 03/13/18 12:52 Urine Microscopic RBC 5-15 per hpf (0-3) H 03/13/18 12:52 Urine Microscopic WBC 5-15 per hpf (0-3) H 03/13/18 12:52 Ur Squamous Epith Cells Moderate per lpf (None-Few) H 03/13/18 12:52 Urine Bacteria None Seen per hpf (None-Few) 03/13/18 12:52 Hyaline Casts None Seen per lpf (None-Few) 03/13/18 12:52 Urine Sperm Present 03/13/18 12:52 Salicylates < 2.5 mg/dL (15.0-30.0) L 03/13/18 12:22 Urine Opiates Screen Negative ng/mL (Ecjvwe=983) 03/13/18 12:53 Acetaminophen < 10 mcg/mL (10-20) L 03/13/18 12:22 Ur Barbiturates Screen Negative ng/mL (Qbiukj=999) 03/13/18 12:53 Ur Phencyclidine Scrn Negative ng/mL (Cutoff=25) 03/13/18 12:53 Ur Amphetamines Screen Positive ng/mL (Dgvaxh=6173) H 03/13/18 12:53 U Benzodiazepines Scrn Negative ng/mL (Wnufxo=344) 03/13/18 12:53 Urine Cocaine Screen Negative ng/mL (Cutoff= 300) 03/13/18 12:53 U Marijuana (THC) Screen Negative ng/mL (Cutoff = 50) 03/13/18 12:53 Ethyl Alcohol < 10 mg/dL (Less than 10) 03/13/18 12:22 Assessment and Plan (1) Major depression, recurrent, chronic Current visit: No Status: Acute Plan: Admit inpatient for safety and stabilization, Close observation, Suicide Precautions per unit protocol, Encourage participation in unit milieu, Group Therapy, Monitor sleep, Monitor appetite Additional Plan: We will restart home medications. Consider adjusting Wellbutrin and/or transitioning to a different antidepressant. Patient may not have been taking meds as prescribed outside of the hospital. Encourage participation in therapeutic milieu. Risks, benefits, side effects, alternatives discussed w/pt: Yes Patient agreeable to treatment: Yes Estimated Length of Stay (Days): 3 (2) Post traumatic stress disorder (PTSD) Current visit: No Status: Acute Plan: Admit inpatient for safety and stabilization, Close observation, Suicide Precautions per unit protocol, Encourage participation in unit milieu, Group Therapy, Monitor sleep, Monitor appetite Risks, benefits, side effects, alternatives discussed w/pt: Yes Patient agreeable to treatment: Yes (3) Amphetamine abuse, episodic Current visit: No Status: Acute Plan: Admit inpatient for safety and stabilization Risks, benefits, side effects, alternatives discussed w/pt: Yes Patient agreeable to treatment: Yes Plans for Post Hospital Care: Home Estimated Length of Stay (Days): 3
[2018-03-14] MEDS: *HR* LORazepam 1 MG TABLET PO PRN (21:02)
[2018-03-15] MEDS: BuPROPion XL (24 HR) 150 MG TABLET PO SCH (08:56)
[2018-03-15] MEDS: cloNIDine HCl 0.1 MG TABLET PO SCH (08:56)
--- NOTE | 2018-03-15 13:22 | Psychiatry Progress Note ---
Date of Encounter: 03/15/18 Time of Encounter: 08:30 Subjective Interval history: Donovan is a 78-year-old male with depression and history of substance abuse. He is seen today for follow-up. Patient remains withdrawn to his room and not willing to participate in treatment. He does state he is sleeping okay. He states he still feels very depressed and thinks that if he leaves the hospital he might kill himself. "It is the only way out." He is willing to try medication adjustments. Encouraged patient to participate in unit activities. Patient does not believe he has issues with substance abuse and thus does not want to pursue treatment for this. Review of Systems Constitutional: Denies: weakness Respiratory: Denies: cough, dyspnea, wheezes Gastrointestinal: Denies: abdominal pain, nausea, vomiting Musculoskeletal: Reports: back pain Neurological: Denies: headache, paresthesias Psychiatric: Reports: depression, anxiety, abnormal sleep pattern, suicidal ideation, change in appetite, difficulty concentrating, hopelessness, irritability, mood swings. Denies: auditory hallucinations, visual hallucinations Results - Vital Signs Vital Signs: Temp Pulse Resp BP Pulse Ox 97.7 F 61 18 135/86 96 03/15/18 08:05 03/15/18 08:05 03/15/18 08:05 03/15/18 08:05 03/13/18 11:36 Assessment and Plan (1) Major depression, recurrent, chronic Current visit: No Status: Acute Plan: Continue hospitalization, Close observation, Suicide Precautions per unit protocol, Encourage participation in unit milieu, Group Therapy, Monitor sleep, Monitor appetite Additional Plan: We will cross taper Abilify and Seroquel. Patient is sleeping well and we can substitute another medication for sleep if necessary. Continue Wellbutrin. Risks, benefits, side effects, alternatives discussed w/pt: Yes Patient agreeable to treatment: Yes (2) Post traumatic stress disorder (PTSD) Current visit: No Status: Acute Plan: Continue hospitalization, Close observation Risks, benefits, side effects, alternatives discussed w/pt: Yes Patient agreeable to treatment: Yes (3) Amphetamine abuse, episodic Current visit: No Status: Acute Plan: Continue hospitalization, Close observation Risks, benefits, side effects, alternatives discussed w/pt: Yes Patient agreeable to treatment: Yes Consult Discharge Plan - Plan Referrals: NONE,PCP [Primary Care Provider] - Psychiatry Exam - Constitutional Vitals: Temp Pulse Resp BP Pulse Ox 97.7 F 61 18 135/86 96 03/15/18 08:05 03/15/18 08:05 03/15/18 08:05 03/15/18 08:05 03/13/18 11:36 General appearance: age & developmentally appropriate, unkempt - Musculoskeletal Gait: normal Station: relaxed Strength & Tone: normal for patient - Psychiatric Patient Orientation: Yes Person, Yes Time, Yes Place Level of alertness: Alert Behavior: uncooperative, withdrawn Psychomotor activity: Slowed Eye Contact: Diverts Contact Mood Description: Depressed Affect description: dysphoric Speech Volume: Normal Speech pattern: monotone, mumbled Language & Vocabulary: consistent with education Thought Process: Logical Thought Content: Yes Suicidal ideation Perceptual Disturbances: No Auditory hallucinations, No Visual hallucinations Attention Span Ability: Capable of Focused Attention Memory Description: Grossly Intact Patient Reliability: Reliable Historian Fund of knowledge: Yes abstraction ability, Yes average, Yes aware of current events Intelligence Estimate: Average Judgment: Limited Insight: Minimal
[2018-03-15] MEDS: ARIPiprazole 2 MG TABLET PO SCH (14:32)
[2018-03-15] MEDS: Nicotine 2 MG GUM BC PRN (17:40)
[2018-03-15] MEDS: hydrOXYzine pamoate 25 MG CAPSULE PO PRN (20:51)
[2018-03-16] MEDS: cloNIDine HCl 0.1 MG TABLET PO SCH (10:34)
[2018-03-16] MEDS: BuPROPion XL (24 HR) 150 MG TABLET PO SCH (10:34)
[2018-03-16] MEDS: ARIPiprazole 2 MG TABLET PO SCH (10:34)
[2018-03-16] MEDS: Nicotine 2 MG GUM BC PRN (12:13)
[2018-03-16] MEDS: hydrOXYzine pamoate 25 MG CAPSULE PO PRN ×2 (12:13→21:41)
[2018-03-16] MEDS: *HR* LORazepam 1 MG TABLET PO PRN (16:10)
[2018-03-16] MEDS: Nicotine 21 MG PATCH.TD24 TD SCH (16:11)
--- NOTE | 2018-03-16 16:51 | Psychiatry Progress Note ---
Date of Encounter: 03/16/18 Time of Encounter: 14:00 Subjective Interval history: Pt is a 48 yo,, male, who presents for Schizoaffective Depressed type . Pt noted that he feels he is still very depressed. Pt noted I still occasionally have thoughts to harm myself..nothing current though. Pt denied any side effects to current medications. Pt noted he felt safe and comfortable on the unit and will tell staff if things get bad again. Pt was in agreement with current treatment plan. Pt noted that he is doing alright today. Pt noted he slept alright last night. Pt noted his appetite is decreased. Pt rated his depression a 8, on a scale of zero to ten with ten being the worst and zero being none. Pt rate his anxiety a 6, on the same scale. Pt denied any auditory hallucinations. Pt noted visiual hallucinations of a black dog. Pt denied any current thoughts to harm himself or anyone else. No TD noted, AIMS=0 Tobacco: 2 ppd Alcohol: Denies, sober [address]: some meth and ice. Caffeine: 2-3 drinks per day Pt denies any hx of HIV, TBI or Seizures. Pt noted he is Hep C positive MSE: Alert and Oriented x4 Appearance: neatly groomed dressed in appropriate civilian attire Behavior: friendly, courteous, polite Speech: Fluent, normal tone, normal rate Mood: depressed Affect: mood congruent Thought content: no HI noted, no SI noted, Questionable delusions noted Psychosis: noted visiual hallucinations. Thought Process: Linear coherent goal directed Judgment: poor. Insight: questionable. Assessment/Plan 1. Interval hx 2.Continue current medications 3.Review current labs 4.Pt had an opportunity to ask questions and discuss current treatment plan. 5.Supportive therapy was provided 6.Pt encouraged to consider group or individual therapy 7.Pt was in agreement with treatment plan. 8.Pt was educated on the risks benefits and side effects of current medications. Review of Systems Psychiatric: Reports: depression, anxiety, abnormal sleep pattern, suicidal ideation, change in appetite, difficulty concentrating, hopelessness, irritability, mood swings. Denies: auditory hallucinations, visual hallucinations Results - Vital Signs Vital Signs: Temp Pulse Resp BP Pulse Ox 97.2 F L 74 18 133/90 96 03/16/18 09:00 03/16/18 09:00 03/16/18 09:00 03/16/18 09:00 03/13/18 11:36 Consult Discharge Plan - Plan Referrals: NONE,PCP [Primary Care Provider] - Psychiatry Exam - Constitutional Vitals: Temp Pulse Resp BP Pulse Ox 97.2 F L 74 18 133/90 96 03/16/18 09:00 03/16/18 09:00 03/16/18 09:00 03/16/18 09:00 03/13/18 11:36
[2018-03-17] MEDS: Nicotine 21 MG PATCH.TD24 TD SCH (10:06)
[2018-03-17] MEDS: ARIPiprazole 2 MG TABLET PO SCH (10:06)
[2018-03-17] MEDS: cloNIDine HCl 0.1 MG TABLET PO SCH (10:06)
[2018-03-17] MEDS: BuPROPion XL (24 HR) 150 MG TABLET PO SCH (10:06)
--- NOTE | 2018-03-17 12:10 | Psychiatry Progress Note ---
Date of Encounter: 03/17/18 Time of Encounter: 11:30 Subjective Interval history: Pt is a 48 yo,, male, who presents for Schizoaffective Depressed type . Pt noted that he feels he is still depressed yet improving. Pt continues to note "I still occasionally have thoughts to harm myself..its just constant.....but I wont do anything here....I feel safe. Pt denied any side effects to current medications. Pt continues to note he felt safe and comfortable on the unit and will tell staff if things get bad again. Pt was in agreement with current treatment plan. Pt noted that he is doing alright today. Pt noted he slept better 6 hours. Pt noted his appetite is improving slowly. Pt rated his depression a 7, on a scale of zero to ten with ten being the worst and zero being none. Pt rate his anxiety a 8, on the same scale. Pt denied any current auditory or visiual hallucinations. Pt noted hx of visiual hallucinations of a black dog. Pt denied any current thoughts to harm himself or anyone else. No TD noted, AIMS=0 Tobacco: 2 ppd Alcohol: Denies, sober [address]: some meth and ice. Caffeine: 2-3 drinks per day MSE: Alert and Oriented x4 Appearance: neatly groomed dressed in appropriate civilian attire Behavior: friendly, courteous, polite Speech: Fluent, normal tone, normal rate Mood: depressed Affect: mood congruent Thought content: no HI noted, no SI noted, Questionable delusions noted Psychosis: noted visiual hallucinations. Thought Process: Linear coherent goal directed Judgment: poor. Insight: questionable. Impressions Psychiatric Dx: 1. Schizoaffective D/O Depressed type. 2. General Anxiety D/O 3. Personality D/O, cluster B Plan: 1. Interval hx 2.Continue current medications 3. Increase quetiapine to 200 mg PO QHS for mood (risks benifits and side- effects of medications were review, including no medications, pt was in agreement). 4.Review current labs 5.Pt had an opportunity to ask questions and discuss current treatment plan. 6.Supportive therapy was provided 7.Pt encouraged to consider group or individual therapy 8.Pt was in agreement with treatment plan. 9.Pt was educated on the risks benefits and side effects of current medications. Review of Systems Psychiatric: Reports: depression, anxiety, abnormal sleep pattern, suicidal ideation, change in appetite, difficulty concentrating, hopelessness, irritability, mood swings. Denies: auditory hallucinations, visual hallucinations Results - Vital Signs Vital Signs: Temp Pulse Resp BP Pulse Ox 98.3 F 60 14 136/92 96 03/17/18 09:00 03/17/18 09:00 03/17/18 09:00 03/17/18 09:00 03/13/18 11:36 Assessment and Plan (1) Schizoaffective disorder without good prognostic features Current visit: Yes Status: Acute (2) Suicidal ideation Current visit: Yes Status: Acute (3) Amphetamine abuse, episodic Current visit: No Status: Acute Risks, benefits, side effects, alternatives discussed w/pt: Yes Patient agreeable to treatment: Yes Consult Discharge Plan - Plan Referrals: NONE,PCP [Primary Care Provider] - Psychiatry Exam - Constitutional Vitals: Temp Pulse Resp BP Pulse Ox 98.3 F 60 14 136/92 96 03/17/18 09:00 03/17/18 09:00 03/17/18 09:00 03/17/18 09:00 03/13/18 11:36
[2018-03-17] MEDS: *HR* LORazepam 1 MG TABLET PO PRN (13:41)
[2018-03-18] MEDS: cloNIDine HCl 0.1 MG TABLET PO SCH (09:40)
[2018-03-18] MEDS: BuPROPion XL (24 HR) 150 MG TABLET PO SCH (09:40)
[2018-03-18] MEDS: ARIPiprazole 2 MG TABLET PO SCH (09:40)
[2018-03-18] MEDS: Nicotine 2 MG GUM BC PRN ×2 (09:41→20:45)
[2018-03-18] MEDS: Nicotine 21 MG PATCH.TD24 TD SCH (09:42)
--- NOTE | 2018-03-18 12:31 | Psychiatry Progress Note ---
Date of Encounter: 03/18/18 Time of Encounter: 10:45 Subjective Interval history: Pt is a 48 yo,, male, who presents for Schizoaffective Depressed type . Pt noted that he feels he is still depressed yet improving. Pt continues to note "I definitely feel better and I am doing a ot more stuff. Pt denied any side effects to current medications. Pt continues to note he felt safe and comfortable on the unit and will tell staff if things get bad again. Pt was in agreement with current treatment plan. Pt noted that he is doing better today. Pt noted he slept better 6 hours. Pt noted his appetite is improving....better. Pt rated his depression a 7, on a scale of zero to ten with ten being the worst and zero being none. Pt rate his anxiety a 8, on the same scale. Pt denied any current auditory or visiual hallucinations. Pt noted occasional visiual hallucinations of a black dog. Pt denied any current thoughts to harm himself or anyone else. No TD noted, AIMS=0 Tobacco: 2 ppd Alcohol: Denies, sober [address]: some meth and ice. Caffeine: 2-3 drinks per day MSE: Alert and Oriented x4 Appearance: neatly groomed dressed in appropriate civilian attire Behavior: friendly, courteous, polite Speech: Fluent, normal tone, normal rate Mood: depressed but better Affect: mood congruent Thought content: no HI noted, no SI noted, Questionable delusions noted Psychosis: noted visiual hallucinations. Thought Process: Linear coherent goal directed Judgment: questionable. Insight: questionable. Impressions Psychiatric Dx: 1. Schizoaffective D/O Depressed type. 2. General Anxiety D/O 3. Personality D/O, cluster B Plan: 1. Interval hx 2.Continue current medications 3. Increase quetiapine to 250 mg PO QHS for mood (risks benifits and side- effects of medications were review, including no medications, pt was in agreement). 4.Review current labs 5.Pt had an opportunity to ask questions and discuss current treatment plan. 6.Supportive therapy was provided 7.Pt encouraged to consider group or individual therapy 8.Pt was in agreement with treatment plan. 9.Pt was educated on the risks benefits and side effects of current medications. Review of Systems Psychiatric: Reports: depression, anxiety, abnormal sleep pattern, suicidal ideation, change in appetite, difficulty concentrating, hopelessness, irritability, mood swings. Denies: auditory hallucinations, visual hallucinations Results - Vital Signs Vital Signs: Temp Pulse Resp BP Pulse Ox 98.3 F 78 16 118/85 96 03/18/18 09:00 03/18/18 09:00 03/18/18 09:00 03/18/18 09:00 03/13/18 11:36 Assessment and Plan (1) Schizoaffective disorder without good prognostic features Current visit: Yes Status: Acute (2) Suicidal ideation Current visit: Yes Status: Acute (3) Amphetamine abuse, episodic Current visit: No Status: Acute Risks, benefits, side effects, alternatives discussed w/pt: Yes Patient agreeable to treatment: Yes Consult Discharge Plan - Plan Referrals: NONE,PCP [Primary Care Provider] - Psychiatry Exam - Constitutional Vitals: Temp Pulse Resp BP Pulse Ox 98.3 F 78 16 118/85 96 03/18/18 09:00 03/18/18 09:00 03/18/18 09:00 03/18/18 09:00 03/13/18 11:36
[2018-03-18] MEDS: hydrOXYzine pamoate 25 MG CAPSULE PO PRN (13:11)
[2018-03-18] MEDS: *HR* LORazepam 1 MG TABLET PO PRN (13:16)
[2018-03-19] MEDS: ARIPiprazole 2 MG TABLET PO SCH (08:40)
[2018-03-19] MEDS: BuPROPion XL (24 HR) 150 MG TABLET PO SCH (08:40)
[2018-03-19] MEDS: cloNIDine HCl 0.1 MG TABLET PO SCH (08:40)
[2018-03-19] MEDS: *HR* LORazepam 1 MG TABLET PO PRN (10:31)
--- NOTE | 2018-03-19 14:32 | Psychiatry Progress Note ---
Date of Encounter: 03/19/18 Time of Encounter: 13:30 Subjective Interval history: Pt is a 48 yo,, male, who presents for Schizoaffective Bipolar type . Pt noted that he feels he is still depressed yet continues to improve everyday. Pt continues to note "I definitely feel better and I am up and around a lot more. PT was in agreement to follow up with discharge to [facility]. Pt noted he continues to struggle with addiction. Pt denied any side effects to current medications. Pt continues to note he felt safe and comfortable on the unit. Pt was in agreement with current treatment plan. Pt noted that he is doing better today. Pt noted he slept better 6 hours. Pt noted his appetite is improving....better. Pt rated his depression a 6, on a scale of zero to ten with ten being the worst and zero being none. Pt rate his anxiety a 7, on the same scale. Pt denied any current auditory or visiual hallucinations. Pt denied any current thoughts to harm himself or anyone else. No TD noted, AIMS=0 Tobacco: 2 ppd Alcohol: Denies, sober [address]: some meth and ice. Caffeine: 2-3 drinks per day MSE: Alert and Oriented x4 Appearance: neatly groomed dressed in appropriate civilian attire Behavior: friendly, courteous, polite Speech: Fluent, normal tone, normal rate Mood: depressed but better Affect: mood congruent Thought content: no HI noted, no SI noted, Questionable delusions noted Psychosis: noted visiual hallucinations. Thought Process: Linear coherent goal directed Judgment: questionable. Insight: questionable. Plan: 1. Interval hx 2.Continue current medications 3. Increase quetiapine to 300 mg PO QHS for mood (risks benifits and side- effects of medications were review, including no medications, pt was in agreement). 4.Review current labs 5.Pt had an opportunity to ask questions and discuss current treatment plan. 6.Supportive therapy was provided 7.Pt encouraged to consider group or individual therapy 8.Pt was in agreement with treatment plan. 9.Pt was educated on the risks benefits and side effects of current medications. 10. Continue to coordinated D/C planning for follow on substance abuse programs. Review of Systems Psychiatric: Reports: depression, anxiety, abnormal sleep pattern, suicidal ideation, change in appetite, difficulty concentrating, hopelessness, irritability, mood swings. Denies: auditory hallucinations, visual hallucinations Results - Vital Signs Vital Signs: Temp Pulse Resp BP Pulse Ox 97.9 F 71 16 134/82 96 03/19/18 09:00 03/19/18 09:00 03/19/18 09:00 03/19/18 09:00 03/13/18 11:36 Assessment and Plan (1) Schizoaffective disorder without good prognostic features Current visit: Yes Status: Acute (2) Suicidal ideation Current visit: Yes Status: Acute (3) Amphetamine abuse, episodic Current visit: No Status: Acute Risks, benefits, side effects, alternatives discussed w/pt: Yes Patient agreeable to treatment: Yes Consult Discharge Plan - Plan Referrals: [facility] [Outside] (You are going into mental health respite at [facility] on discharge from the hospital. While there, you will be seen daily by the clinic counselors and senior case manager, both individually and in group. You will also be scheduled to see the psychiatric provider for outpatient psychiatric assessment and medication management.) Psychiatry Exam - Constitutional Vitals: Temp Pulse Resp BP Pulse Ox 97.9 F 71 16 134/82 96 03/19/18 09:00 03/19/18 09:00 03/19/18 09:00 03/19/18 09:00 03/13/18 11:36
[2018-03-19] MEDS: Nicotine 2 MG GUM BC PRN (16:07)
[2018-03-19] MEDS: hydrOXYzine pamoate 25 MG CAPSULE PO PRN (20:29)
--- NOTE | 2018-03-20 07:30 | Discharge Summary ---
Date of Encounter: 03/20/18 Time of Encounter: 06:30 Diagnosis - Discharge Diagnosis (1) Schizoaffective disorder without good prognostic features Priority: Primary Status: Acute (2) Suicidal ideation Priority: Primary Status: Acute (3) Amphetamine abuse, episodic Priority: Secondary Status: Acute Medications - Discharge Medications Prescriptions: Quetiapine Fumarate [Seroquel] 300 mg PO HS #30 tablet BuPROPion XL (24 HR) [Wellbutrin Xl] 300 mg PO DAILY 03/13/18 [History] Quetiapine Fumarate [Seroquel] 25 mg PO QAM 03/13/18 [History] cloNIDine HCl [CloNIDine HCl] 0.1 mg PO DAILY 03/13/18 [History] hydrOXYzine pamoate [HydrOXYzine Pamoate] 50 mg PO TID PRN 03/13/18 [History] Quetiapine Fumarate [Seroquel] 300 mg PO HS #30 tablet 03/20/18 [Rx] 3 Allergy/AdvReac Type Severity Reaction Status Date / Time No Known Allergies Allergy Verified 03/13/18 15:20 Provider Date of admission: 03/13/18 16:50 Primary care physician: PCP NONE Discharging clinician: Nik Betancur Psychiatry Exam - Constitutional Vitals: Temp Pulse Resp BP Pulse Ox 98.7 F 77 18 157/94 96 03/19/18 20:19 03/19/18 20:19 03/19/18 20:19 03/19/18 20:19 03/13/18 11:36 - Psychiatric Patient Orientation: Yes Person, Yes Time, Yes Place, Yes Circumstance Level of alertness: Alert Behavior: calm, cooperative Psychomotor activity: Normal Eye Contact: Maintains Eye Contact Mood Description: Euthymic/stable Affect description: congruent with mood Speech Volume: Normal Speech pattern: normal rate, normal rhythm, normal tone Language & Vocabulary: consistent with education Thought Process: Intact, Logical, Linear, Goal Oriented Thought Content: Yes Intact Attention Span Ability: Capable of Focused Attention Memory Description: Grossly Intact Patient Reliability: Reliable Historian Intelligence Estimate: Average Judgment: Fair Insight: Full Hospital Course Hospital course: Pt is a 48 yo,, male, who presents for Schizoaffective Bipolar type and amphetamine use D/O . Pt noted that he feels he continues to improve and feels safe and comfortable for d/c to [facility] substance abuse program. Pt continues to note "I am doing much better thank you doc. PT was in agreement to follow up with discharge to [facility]. Pt noted he continues to struggle with addiction. Pt denied any side effects to current medications. Pt continues to note he felt safe and comfortable on the unit. Pt was in agreement with current treatment plan. Pt noted that he is doing good today. Pt noted he slept better 6 hours. Pt noted his appetite is improving....good. Pt rated his depression a 5, on a scale of zero to ten with ten being the worst and zero being none. Pt rate his anxiety a 5, on the same scale. Pt denied any current auditory or visiual hallucinations. Pt denied any current thoughts to harm himself or anyone else. No TD noted, AIMS=0 Tobacco: 2 ppd Alcohol: Denies, sober [address]: some meth and ice. Caffeine: 2-3 drinks per day MSE: Alert and Oriented x4 Appearance: neatly groomed dressed in appropriate civilian attire Behavior: friendly, courteous, polite Speech: Fluent, normal tone, normal rate Mood: good Affect: mood congruent Thought content: no HI noted, no SI noted, No delusions noted Psychosis: none noted, currently not resoponding to internal stimuli Thought Process: Linear coherent goal directed Judgment: questionable. Insight: questionable. Plan: 1. Interval hx 2.Continue current medications 3. Contine quetiapine to 300 mg PO QHS for mood (risks benifits and side- effects of medications were review, including no medications, pt was in agreement). 4.Review current labs 5.Pt had an opportunity to ask questions and discuss current treatment plan. 6.Supportive therapy was provided 7.Pt encouraged to consider group or individual therapy 8.Pt was in agreement with treatment plan. 9.Pt was educated on the risks benefits and side effects of current medications. 10. D/C pt to for substance abuse programs. 11. Abstain from any alcohol or illicit substances 12. Follow up with all scheduled appointments 13. Abstain from any alcohol or illict substances. 14. Pt educated on 90 meetings in 90 day, staying sober and finding a sponsor. Time spent discussing smoking cessation with patient: more than 10 minutes Does patient wish to continue nicotine replacement upon disc: No - Time Spent with Patient Total time spent providing and/or coordinating discharge services: Greater than 30 minutes Assessment and Plan - Patient/Caregiver Discharge Instructions Activity: resume usual activities as tolerated - Follow up Plan Follow up with: [facility] [Outside] (You are going into mental health respite at [facility] on discharge from the hospital. While there, you will be seen daily by the clinic counselors and medical case worker, both individually and in group. You will also be scheduled to see the psychiatric provider for outpatient psychiatric assessment and medication management.) Overall status at discharge: Stable Disposition: Transfer Inpatient Rehab Fac Quality - Multiple Antipsychotics Patient discharged on 2 or more antipsychotic medications: No (only on quetiapine) - Justification Documentation of: Other justification (Pt currently is only on quetiapine and only has Haloperidol in due to PRN medicaiton)
[2018-03-20] MEDS: cloNIDine HCl 0.1 MG TABLET PO SCH (08:42)
[2018-03-20] MEDS: BuPROPion XL (24 HR) 150 MG TABLET PO SCH (08:42)
[2018-03-20] MEDS: Nicotine 2 MG GUM BC PRN (08:42)
[2018-03-20 09:57] VITALS: BP 120/83
== END 2018-03-20 11:45 | DRG 750 ==
LOC: EMEROO 11:28 → SUATTDRO 16:50 → 1ANU 16:50
PROVIDERS: ADMIT Student in an Organized Health Care Education/Training Program; ATTEND General Practice

== ENCOUNTER 2018-05-30 16:20 | Observation (INO) ==
[2018-05-30] MEDS ORDERED: *HR* OxyCODONE Immed Rel 5 MG TABLET PO ONE (17:23)
[2018-05-30] MEDS ORDERED: 0.9 % Sodium Chloride 1,000 ML IVC ONE (17:23)
--- NOTE | 2018-05-30 17:25 | Emergency Department Note ---
Disposition Clinical Impression: Acute electrocardiogram changes Syncope Qualifiers: Syncope type: unspecified Qualified Code(s): R55 - Syncope and collapse Disposition: Admitted As Inpatient Condition: Good Referrals: NONE,PCP [Primary Care Provider] - Forms: ED Satisfaction Letter General Adult HPI - General Chief complaint: ED Syncope Stated complaint: syncope, tachycardia, heat exhaustion Source: EMS Limitations: no limitations Nursing Notes Reviewed: Yes Vital Signs Reviewed: Yes - History of Present Illness HPI Narrative: Patient seen for evaluation of syncopal episode. Patient states he can feel it coming on and feels like he blacked out for several seconds before coming back. Still feels off balance with a dry tongue and feels like he has a speech impediment. He is working outside as a bacon. Patient began to feel lightheaded and dizzy and had to lower himself to the grounds that she would not fall. Did not lose consciousness. He did not hit his head. He is complaining of a headache behind the left eye at this time. Patient rates the headache as a 8 out of 10. Patient does not have a significant history of headaches. Headache started approximately an hour prior to arrival. Patient continues to feel generalized weakness with nausea. Associated lightheadedness. No chest pain or shortness of breath. States that his legs just feel weak and like they were going to give out. Patient does not take any anticoagulation. He does take multiple medications which she describes as "had medications" and are related to psychiatric issues. Pain Scale: 0 - Related Data Home Medications Medication Instructions Recorded Confirmed Benztropine [Cogentin] 1 mg PO BID 05/30/18 05/30/18 Bupropion HCl [Wellbutrin Xl] 300 mg PO DAILY 05/30/18 05/30/18 Cetirizine HCl [All Day Allergy] 10 mg PO DAILY 05/30/18 05/30/18 Cholecalciferol (D-3) [Vitamin D] 1,000 unit PO DAILY 05/30/18 05/30/18 Fluticasone Propionate Nasal 1 spr NS DAILY 05/30/18 05/30/18 [Flonase] Haloperidol [Haloperidol] 2 mg PO BID 05/30/18 05/30/18 HydrOXYzine Pamoate [Vistaril] 50 mg PO TID 05/30/18 05/30/18 Propranolol [Inderal] 20 mg PO DAILY 05/30/18 05/30/18 Quetiapine Fumarate [SEROquel] 25 mg PO BID 05/30/18 05/30/18 Quetiapine Fumarate [SEROquel] 300 mg PO HS 05/30/18 05/30/18 cloNIDine HCl [CloNIDine HCl] 0.1 mg PO DAILY 05/30/18 05/30/18 hydroCHLOROthiazide 12.5 mg PO DAILY 05/30/18 05/30/18 [Hydrochlorothiazide] Allergies Allergy/AdvReac Type Severity Reaction Status Date / Time No Known Allergies Allergy Verified 03/13/18 15:20 Review of Systems: CONSTITUTIONAL: Generalized weakness and fatigue. No weight loss, fever, chills HEENT: Eyes: No visual changes. Ears, Nose, Throat: No hearing loss, difficulty talking or unable to swallow. SKIN: No rash or itching. CARDIOVASCULAR: No chest pain, chest pressure or chest discomfort. No palpitations or edema. RESPIRATORY: No shortness of breath, cough or sputum. GASTROINTESTINAL: No anorexia, nausea, vomiting or diarrhea. No abdominal pain or blood. GENITOURINARY: No burning on urination or hematuria. NEUROLOGICAL: Near syncope No headache, dizziness, paralysis, ataxia, numbness or tingling in the extremities. No change in bowel or bladder control. MUSCULOSKELETAL: No muscle pain, back pain, joint pain or stiffness. Past Medical History - Past Medical History Medical history: Reports: hypertension, other Surgical history: Reports: cholecystectomy Psychiatric history: Reports: anxiety, depression, previous psychiatric hospitalization, other - Social History Smoking Status: Current some day smoker Smokeless Tobacco Status: Yes Alcohol use: Reports: rarely Drug use: Reports: none Physical Exam General: Well appearing, nontoxic, no acute distress Head: Normocephalic Atraumatic Eyes: PERRL, EOMI ENT: Airway patent, no stridor Neck: supple, no meningismus Chest: Lungs clear to auscultation bilateral Cardiac: Regular rate and rhythm, no murmurs, rubs or gallops Abdomen: soft, nontender, nondistended; no guarding, rebound, or tenderness to percussion Musculoskeletal: Calves symmetric, nontender, no palpable cord Skin: No rash, normal skin tone Neuro: Alert and Oriented to person, place, and time; No focal deficit, CN 2-12 symmetric and intact. 5 out of 5 strength through the upper and lower extremities. Sensation intact throughout the upper and lower extremities. Finger to nose intact bilaterally. - General Limitations: no limitations General appearance: alert, in no apparent distress Course - Reevaluation(s) Reevaluation #1: Patient states symptoms have improved some but he continues to feel lightheaded. The patient states that he continues to feel like something is "not quite right". He is unable to further specify exactly what he means. Patient does not have any significant deficit in his blood work is unremarkable. His EKG does have T-wave flattening throughout the precordial leads with no previous EKG. We will bring the patient in for further evaluation of syncope. - Consultations Consultation #1: Discussed the hospitalist. Patient accepted for admission. Consultation #2: After evaluation by the hospitalist she did notify me that he is complaining of more left-sided deficits. I have evaluated patient several times and did not proceed any deficits. When he initially presented I was concerned about possible subarachnoid hemorrhage but due to his quick presentation and negative head CT within several hours of presentation as well as normal neuro exam, this is less likely. He did not have any left-sided symptoms upon my initial presentation. Complaining of some dysarthria and trouble speaking but he did not have any tongue deviation or difficulty with swallowing. He has been reevaluated after this is been brought up and he continues to not have any specific deficits other than some mild dysarthria and feeling as he cannot get the words out specifically how he wants. Has not changed since his presentation. It was thought it was more likely due to his initial presentation of syncope while working outside and dehydration.These findings are concerning for what may be potential stroke symptoms. Patient states that the symptoms started this morning prior to his arrival. He states states that he did not feel quite right in the morning does not have specific time of last known well. Patient is outside window of TPA. Vital Signs Temperature 98.8 F 05/30/18 16:23 Pulse Rate 115 05/30/18 16:23 Respiratory Rate 20 05/30/18 16:23 Blood Pressure 134/82 05/30/18 16:23 O2 Sat by Pulse Oximetry 93 05/30/18 16:23 Temperature 98.8 F 05/30/18 16:23 Pulse Rate 115 05/30/18 16:23 Respiratory Rate 20 05/30/18 18:38 Blood Pressure 134/82 05/30/18 16:23 O2 Sat by Pulse Oximetry 99 05/30/18 18:38 Oxygen Delivery Oxygen Delivery Room Air Medical Decision Making - Medical Records Medical records reviewed: Yes I reviewed the patient's medical records. - Lab Data Lab results reviewed: Yes I reviewed the patient's lab results. Result diagrams: 05/30/18 17:20 05/30/18 17:20 Lab Results 05/30/18 05/30/18 05/30/18 Range/Units 17:20 17:20 17:20 WBC 9.7 (4.3-11.1) K/mcL RBC 4.70 (4.19-5.50) M/mcL Hgb 13.8 (12.9-16.9) g/dL Hct 40.5 (37.5-50.1) % MCV 86.2 (83.0-100.0) fL MCH 29.4 (28.0-33.3) pg MCHC 34.1 (31.6-35.5) g/dL RDW 13.2 (11.5-14.5) % Plt Count 180 (140-400) K/mcL MPV 9.7 (9.4-12.4) fL Immature Gran % 0.4 (0-4) % Seg Neutrophils % 67.6 % Lymphocytes % 22.5 % Monocytes % 7.9 % Eosinophils % 1.1 % Basophils % 0.5 % Neutrophils # 6.5 (1.6-8.9) K/mcL Lymphocytes # 2.2 (0.6-4.6) K/mcL Monocytes # 0.8 (0.0-1.3) K/mcL Eosinophils # 0.1 (0.0-0.6) K/mcL Basophils # 0.1 (0.0-0.2) K/mcL D-Dimer 266 (0-500) ng/mLFEU Sodium 135 L (136-145) mEq/L Potassium 3.6 (3.5-5.1) mEq/L Chloride 106 (98-107) mEq/L Carbon Dioxide 22 L (23-29) mEq/L BUN 24 H (6-20) mg/dL Creatinine 0.90 (0.70-1.30) mg/dL Est GFR ( Amer) > 60 (> 60) Est GFR (Non-Af Amer) > 60 (> 60) BUN/Creatinine Ratio 27 H (6-26) Glucose 116 H (70-105) mg/dL Calculated Osmolality 285 (280-300) Calcium 9.1 (8.6-10.3) mg/dL Troponin I < 0.03 (< 0.04) ng/mL - Radiology Data Radiology results reviewed: Yes I reviewed the patient's radiology results. - EKG Data EKG #1 EKG attestation: Yes I reviewed and interpreted this EKG. EKG results narrative: EKG shows sinus tachycardia with ventricular rate of 112. NM interval 174. QRS 95. QTC 331. Patient has no significant ST elevations or depressions. Diffuse T-wave flattening. No previous EKG for comparison.
[2018-05-30 17:34] LABS: Basophils # 0.1 K/mcL (0.0-0.2); Basophils % 0.5 %; Eosinophils # 0.1 K/mcL (0.0-0.6); Eosinophils % 1.1 %; Hematocrit 40.5 % (37.5-50.1); Hemoglobin 13.8 g/dL (12.9-16.9); Immature Granulocytes % 0.4 % (0-4); Lymphocytes # 2.2 K/mcL (0.6-4.6); Lymphocytes % 22.5 %; Mean Corpuscular HGB Conc 34.1 g/dL (31.6-35.5); Mean Corpuscular Hemoglobin 29.4 pg (28.0-33.3); Mean Corpuscular Volume 86.2 fL (83.0-100.0); Mean Platelet Volume 9.7 fL (9.4-12.4); Monocytes # 0.8 K/mcL (0.0-1.3); Monocytes % 7.9 %; Neutrophils # 6.5 K/mcL (1.6-8.9); Platelet Count 180 K/mcL (140-400); Red Cell Distribution Width 13.2 % (11.5-14.5); Segmented Neutrophils % 67.6 %
[2018-05-30 18:02] LABS: Troponin I < 0.03 ng/mL (< 0.04)
[2018-05-30 18:03] LABS: BUN/Creatinine Ratio 27 (6-26); Blood Urea Nitrogen 24 mg/dL (6-20); Calcium 9.1 mg/dL (8.6-10.3); Carbon Dioxide 22 mEq/L (23-29); Chloride 106 mEq/L (98-107); Glucose 116 mg/dL (70-105); Osmolality,Calculated 285 (280-300); Potassium 3.6 mEq/L (3.5-5.1); Sodium 135 mEq/L (136-145); eGFR For Non-African Americans > 60 (> 60)
[2018-05-30] MEDS ORDERED: Ipratropium/Albuterol Neb 3 ML IH ONE (18:08)
--- NOTE | 2018-05-30 20:37 | Internal Med History&Physical ---
Date of Encounter: 05/30/18 Time of Encounter: 20:33 Internal Medicine - H&P: HPI Chief complaint: syncope Admitted From: Home Plans for Post Hospital Care: Home History of present illness: Mr. Aguirre is a 48 year old male with history of bipolar disorder presented to the ED with complaint of near syncope. 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 He cannot recall if he lost consciousness, he did not hit his head, and he can recall the episode. In addition to lightheadedness he also complains of weakness mostly in the left side of his extremities and feels as though he has a speech impediment. He denies similar episodes in the past, which is why he decided to come to the ED for further evaluation. He reports that he has had heat exhaustion in the past from working outside but reports that these symptoms are different than what he felt before when he had heat exhaustion. He is compliant with his medications, reports that he was started on clonidine by his psych clinic. He took a dose this morning before his symptoms started. He reports that he is then on the medication for some time and has not felt these symptoms before. While he was in the ED he complained of a 8 out of 10 headache, along with left- sided weakness and sensation of speech impediment so CT head was done to rule out any intracranial hemorrhage. CT head did not show any acute abnormalities. He was treated with IV fluids for dehydration and was endorsed to be admitted for syncope without arrhythmia He denies fever chills, headache, vision changes, chest pain, palpitations, shortness of breath, nausea, vomiting, diarrhea, heat or cold intolerance, NO SI OR HI . Past Med Surg Social Fam HX - Past Medical History Medical history: hypertension, other Additional medical history: Denies Psychiatric history: anxiety, depression, previous psychiatric hospitalization, other - Past Surgical History Surgical History: cholecystectomy Additional surgical history: Gallblader removed - Social History Smoking Status: Current some day smoker Smokeless Tobacco Status: Yes Alcohol use: rarely Drug use: none Internal Medicine - H&P: Meds Benztropine [Cogentin] 1 mg PO BID 05/30/18 [History] Bupropion HCl [Wellbutrin Xl] 300 mg PO DAILY 05/30/18 [History] Cetirizine HCl [All Day Allergy] 10 mg PO DAILY 05/30/18 [History] Cholecalciferol (D-3) [Vitamin D] 1,000 unit PO DAILY 05/30/18 [History] Fluticasone Propionate Nasal [Flonase] 1 spr NS DAILY 05/30/18 [History] Haloperidol [Haloperidol] 2 mg PO BID 05/30/18 [History] HydrOXYzine Pamoate [Vistaril] 50 mg PO TID 05/30/18 [History] Propranolol [Inderal] 20 mg PO DAILY 05/30/18 [History] Quetiapine Fumarate [SEROquel] 25 mg PO BID 05/30/18 [History] Quetiapine Fumarate [SEROquel] 300 mg PO HS 05/30/18 [History] cloNIDine HCl [CloNIDine HCl] 0.1 mg PO DAILY 05/30/18 [History] hydroCHLOROthiazide [Hydrochlorothiazide] 12.5 mg PO DAILY 05/30/18 [History] 3 Allergy/AdvReac Type Severity Reaction Status Date / Time No Known Allergies Allergy Verified 03/13/18 15:20 All Systems PM: review of systems was performed and is negative for pertinent findings except as documented above in the HPI. - Constitutional Vitals: Temp Pulse Resp BP Pulse Ox 98.8 F 115 20 134/82 99 05/30/18 16:23 05/30/18 16:23 05/30/18 18:38 05/30/18 16:23 05/30/18 18:38 - Other Additional findings: General: Patient is alert, oriented, no acute distress, obese Head: atraumatic, normocephalic, Eye: normal appearance, PERRL, no scleral icterus, no conjunctival injection ENT: mucous membranes moist, normal external ear exam Neck: normal inspection, trachea midline, full ROM, no carotid bruits Chest: normal inspection, symmetric chest rise Respiratory: Good respiratory effort. Bilateral breath sounds are clear without wheezing, crackles, or rhonchi. Cardiovascular: Regular rate and rhythm. s1 and s2 No clicks, rubs, gallops, or murmors. Abdomen: Bowel sounds present normoactive x-4 quadrants. Abdomen is soft, nondistended. Epigastric tenderness. No guarding or rebound. No organomegaly noted, obese musculoskeletal: Spontaneously moving all extremities. no edema, no calf tenderness Skin: warm, dry, intact. Neuro: Alert and oriented x4. Sensation light touch intact. Cranial nerves 2- 12 is intact. Not aphasic, rapid hand movements intact, [id number] intact, no nystagmus, strength is 5/5 in all extremities although left extremity fire prevention chief and leg raise is slightly decreased as compared to the right extremities Psych: Patient's affect is normal Internal Med - H&P Results - Labs CBC & Chem 7: 05/30/18 17:20 05/30/18 17:20 Labs: Short CBC 05/30/18 Range/Units 17:20 WBC 9.7 (4.3-11.1) K/mcL Hgb 13.8 (12.9-16.9) g/dL Hct 40.5 (37.5-50.1) % Plt Count 180 (140-400) K/mcL Neutrophils # 6.5 (1.6-8.9) K/mcL BMP 05/30/18 17:20 Sodium 135 L Potassium 3.6 Chloride 106 Carbon Dioxide 22 L BUN 24 H Creatinine 0.90 Glucose 116 H Calcium 9.1 Cardiac Enzymes 05/30/18 Range/Units 17:20 Troponin I < 0.03 (< 0.04) ng/mL - EKG Data -: EKG Interpreted by Myself (Sinus tachycardia and nonspecific T-wave abnormality, QT 331,) - EKG Data Prior EKG available for review: no - Impressions ITS Impressions Chest X-Ray 05/30/18 16:39 IMPRESSION: No acute process. Mild congestion and loss of volume. D/ / 05/30/2018 17:17:04 Shilpi Torrez MD / [facility] Interpreting Provider: Shilpi Torrez MD Head CT 05/30/18 16:52 IMPRESSION: No acute intracranial abnormality. D/ / Wily Lundberg MD / Wily Lundberg MD Interpreting Provider: Wily Lundberg MD - Assessment and plan (1) Syncope Current Visit: Yes Status: Acute Assessment and plan: syncope ad collapse rule out arrhythmia vs dehdyration induced ?medication induced is taking clonidine ( prescribed by psychiatrist) telemetry monitoring Check orthostatic pressure BP monitoring CBC, BMP am 2D ECHO evaluate LVD Serial Troponin, CK, CKMB, EKG q 8H x2- first on eis negative Supplemental oxygen IVF NS at 84 mL/hrs UA UTOX , alcohol level Qualifiers: Syncope type: unspecified Qualified Code(s): R55 - Syncope and collapse (2) Weakness of left side of body Current Visit: Yes Status: Acute Assessment and plan: left sided weakness - will rule out stroke vs medication side effect CT head done in the ED was negative for any acute intracranial abnormalities telemetry monitoring Aspirin 81 mg qday Lipitor 40 mg daily Neurology consulted- spoke to Dr. Fu who agrees with plan Neuro check q 4 hourly MRI head Carotid duplex 2D ECHO Rehab/ PT Evaluation Lipid panel, HbA1C, TSH Keep systolic BP <220 and diastolic BP <120 mmHg Maintain LDL less than 75 DVT prophylaxis Fall, aspiration and seizure precautions (3) Bipolar disorder, mixed Current Visit: No Status: Acute Assessment and plan: will continue home mediations Qt was checked on EKG and is 331 currently has no SI or HI (4) Hypertension Current Visit: Yes Status: Acute Assessment and plan: hold clonidine, propanolol and HCTZ for now - check telemetry for any arrhythmia / he was also dehydrated - BP is now Stable - he took morning dose of meds consider staring amlodipine if BP is high Qualifiers: Hypertension type: essential hypertension Qualified Code(s): I10 - Essential (primary) hypertension (5) DVT prophylaxis Current Visit: Yes Status: Acute Assessment and plan: heparin 5000 units SC Q8H - Time Spent With Patient Total time spent is greater than 50% in coordination of care (as documented) at patient's floor/unit and/or counseling patient:
[2018-05-30 21:18] LABS: INR 1.2; Prothrombin Time 13.5 Seconds (9.4-12.1)
[2018-05-30 21:21] LABS: Activated Partial Thrombo Time 34.6 Seconds (26.0-36.0)
[2018-05-30 21:22] LABS: Alanine Aminotransferase 132 Units/L (7-52); Albumin 4.3 g/dL (3.5-5.7); Albumin/Globulin Ratio 1.2 (1.1-2.2); Alkaline Phosphatase 63 Units/L (34-104); Aspartate Amino Transferase 51 Units/L (13-39); Bilirubin,Total 0.3 mg/dL (0.3-1.0); Ethanol < 10 mg/dL (Less than 10); Globulin 3.5 g/dL (2.4-3.5); Magnesium 1.9 mg/dL (1.6-2.6); Phosphorous 2.6 mg/dL (2.7-4.5); Total Protein 7.8 g/dL (6.4-8.9)
[2018-05-30 21:43] LABS: Thyroid Stimulating Hormone 2.949 mcIU/mL (0.340-5.600)
[2018-05-31] MEDS: Aspirin Enteric Coated 81 MG Tablet PO SCH ×2 (00:20→08:20)
[2018-05-31] MEDS: *HR* Heparin 5,000 UNIT/ML VIAL SQ SCH ×4 (00:20→21:15)
[2018-05-31] MEDS: hydrOXYzine pamoate 25 MG CAPSULE PO SCH ×4 (00:20→21:15)
[2018-05-31] MEDS: 0.9 % Sodium Chloride 1,000 ML IVC SCH ×2 (00:25→10:53)
[2018-05-31 01:38] LABS: BUN/Creatinine Ratio 25 (6-26); Blood Urea Nitrogen 19 mg/dL (6-20); Calcium 8.6 mg/dL (8.6-10.3); Carbon Dioxide 22 mEq/L (23-29); Chloride 108 mEq/L (98-107); Chol/HDL Ratio 3.3 (0-4.9); Cholesterol 137 mg/dL (< 200); Glucose 101 mg/dL (70-105); HDL Cholesterol 41 mg/dL (40-59); LDL Cholesterol,Calculated 74 mg/dL (0-99); Osmolality,Calculated 284 (280-300); Potassium 3.5 mEq/L (3.5-5.1); Sodium 136 mEq/L (136-145); Triglycerides 108 mg/dL (< 150); eGFR For Non-African Americans > 60 (> 60)
[2018-05-31 01:44] LABS: Bilirubin,Urine Negative (Negative); Blood,Urine Negative (Negative); Clarity,Urine Clear (Clear); Color,Urine Yellow (Yellow); Glucose,Urine (UA) Normal (Normal); Ketones,Urine Negative (Negative); Leukocyte Esterase,Urine Negative (Negative); Nitrite,Urine Negative (Negative); PH,Urine 5.5 pH Units (5.0-8.0); Protein,Urine Negative (Neg-Trace); Specific Gravity,Urine 1.021 (1.010-1.025); Urobilinogen,Urine Normal (Normal)
[2018-05-31 02:07] LABS: Amphetamine Screen,Urine Negative ng/mL (Cutoff=1000); Barbiturate Screen,Urine Negative ng/mL (Cutoff=200); Benzodiazepines Screen,Urine Negative ng/mL (Cutoff=200); Cannabinoid Screen,Urine Negative ng/mL (Cutoff = 50); Cocaine Screen,Urine Negative ng/mL (Cutoff= 300); Opiate Screen,Urine Negative ng/mL (Cutoff=300); Phencyclidine Screen,Urine Negative ng/mL (Cutoff=25)
[2018-05-31 06:26] LABS: Basophils % 0.5 %; Eosinophils # 0.2 K/mcL (0.0-0.6); Eosinophils % 3.3 %; Hematocrit 37.6 % (37.5-50.1); Hemoglobin 12.9 g/dL (12.9-16.9); Immature Granulocytes % 0.3 % (0-4); Lymphocytes # 2.5 K/mcL (0.6-4.6); Lymphocytes % 43.8 %; Mean Corpuscular HGB Conc 34.3 g/dL (31.6-35.5); Mean Corpuscular Hemoglobin 30.1 pg (28.0-33.3); Mean Corpuscular Volume 87.9 fL (83.0-100.0); Mean Platelet Volume 9.8 fL (9.4-12.4); Monocytes # 0.6 K/mcL (0.0-1.3); Monocytes % 9.5 %; Neutrophils # 2.5 K/mcL (1.6-8.9); Platelet Count 163 K/mcL (140-400); Red Blood Count 4.28 M/mcL (4.19-5.50); Red Cell Distribution Width 13.4 % (11.5-14.5); Segmented Neutrophils % 42.6 %
[2018-05-31 06:42] LABS: Estimated Average Glucose 123 mg/dl; Hemoglobin A1C 5.9 %
[2018-05-31] MEDS: Cholecalciferol (D-3) 1,000 UNIT TABLET PO SCH (08:20)
[2018-05-31] MEDS: Loratadine 10 MG TABLET PO SCH (08:20)
[2018-05-31] MEDS: BuPROPion XL (24 HR) 150 MG TABLET PO SCH (08:20)
--- NOTE | 2018-05-31 08:53 | Neurology - Consult Note ---
Date of Encounter: 05/31/18 Time of Encounter: 08:51 Assessment and Plan (1) Weakness of left side of body Current Visit: Yes Status: Acute Patient with psychiatric disorder morbid obesity who developed syncopal/near syncopal episodes associated with left sided weakness, rapidly improving within 24 hours, MRI of brain negative for acute infarct. Will consider this TIA and would recommend TIA work up, including echocardiography, carotid artery duplex study. Will recommend aspirin 81mg daily and continue statin therapy. PT evaluation for left sided weakness History of Present Illness Chief complaint: syncope and left sided weakness HPI: Mr. Aguirre is a 48 year old male with significant psychiatric history, morbid obesity, hyperlipidemia who developed syncope/near syncope associated with left sided weakness and speech impediment. Patient worked few hours yesterday and after few hours of working he developed lightheadedness and slowly fainted to the ground and he may lost his consciousness for about one second and then regained his consciousness quickly but at the same he developed left left weakness and also admits speech impediment'. He was brought to ER and CT of head showed no acute intracranial abnormality. Subsequently he also completed MRI of brain which showed no acute infarct or other significant abnormalities. He feels that his left sided weakness improved. He also still feels that his speech is impaired although his speech now appears intact and fluent. Denies any significant pain Past Med Surg Social Fam HX - Past Medical History Medical history: hypertension, other Additional medical history: Denies Psychiatric history: anxiety, depression, previous psychiatric hospitalization, other - Past Surgical History Surgical History: cholecystectomy Additional surgical history: Gallblader removed - Social History Smoking Status: Current some day smoker Packs per day: 1 Smokeless Tobacco Status: Yes (2 cigarrettes a day) Alcohol use: rarely Drug use: none Medications and Allergies Benztropine [Cogentin] 1 mg PO BID 05/30/18 [History] Bupropion HCl [Wellbutrin Xl] 300 mg PO DAILY 05/30/18 [History] Cetirizine HCl [All Day Allergy] 10 mg PO DAILY 05/30/18 [History] Cholecalciferol (D-3) [Vitamin D] 1,000 unit PO DAILY 05/30/18 [History] Fluticasone Propionate Nasal [Flonase] 1 spr NS DAILY 05/30/18 [History] Haloperidol [Haloperidol] 2 mg PO BID 05/30/18 [History] HydrOXYzine Pamoate [Vistaril] 50 mg PO TID 05/30/18 [History] Propranolol [Inderal] 20 mg PO DAILY 05/30/18 [History] Quetiapine Fumarate [SEROquel] 25 mg PO BID 05/30/18 [History] Quetiapine Fumarate [SEROquel] 300 mg PO HS 05/30/18 [History] cloNIDine HCl [CloNIDine HCl] 0.1 mg PO DAILY 05/30/18 [History] hydroCHLOROthiazide [Hydrochlorothiazide] 12.5 mg PO DAILY 05/30/18 [History] 3 Allergy/AdvReac Type Severity Reaction Status Date / Time No Known Allergies Allergy Verified 03/13/18 15:20 All Systems: The remainder of the systems were reviewed and are negative Physical Examination - Vital Signs Vital Signs: Initial Vital Signs Temp Pulse Resp BP Pulse Ox 98.8 F 115 20 134/82 93 05/30/18 16:23 05/30/18 16:23 05/30/18 16:23 05/30/18 16:23 05/30/18 16:23 - Constitutional General appearance: comfortable - Neurologic Sensorimotor examination: intact Detailed motor examination: other (Left side is having sublet weakness but i did not recognize pronator drift, muscle strength is at 4+/5 both upper and lower extremities) Motor examination - right side: 5/5: deltoids, biceps, triceps, wrist flexion, wrist extension, wraparound facilitator, hip flexors, tibialis Anterior, quadriceps, toe extension (EHL), plantarflexion Motor examination - left side: 4/5: deltoids, biceps, triceps, wrist flexion, wrist extension, hip flexors, wraparound facilitator, quadriceps, tibialis Anterior, toe extension (EHL), plantarflexion Detailed sensory examination: intact Posture: other (None) Reflex and gait examination: other (Gait not assessed) Reflexes: Biceps: 2+, Triceps: 2+, Brachioradialis: 2+, Patella: 2+, Achilles: 2 + Mental Status Examination: awake, alert, oriented to person, oriented to place, oriented to time, follows commands appropriately, answers questions appropriately, no agnosia, no aphasia, no aproxia Cranial nerve examination: PERRL, EOMI, visual asthon intact, corneal reflexes brisk symmetrically, sensory to face intact, mastication intact, no facial asymmetry is present, no dysarthria, hearing is intact symmetrically, soft palate elevates bilaterally upon phonation, gag reflex intact, flexes SCM and trapezius muscles symmetrically with full power, tongue protrudes midline, no atrophy or facial fasiculations present Results - Laboratory Findings CBC and BMP: 05/31/18 05:55 05/31/18 00:47 Abnormal lab findings: Abnormal lab results PT 13.5 Seconds (9.4-12.1) H 05/30/18 17:20 Chloride 108 mEq/L (98-107) H 05/31/18 00:47 Carbon Dioxide 22 mEq/L (23-29) L 05/31/18 00:47 POC Glucose 106 mg/dL (70-99) H 05/31/18 00:14 Hemoglobin A1c 5.9 % (-5.6) H 05/31/18 05:55 Phosphorus 2.6 mg/dL (2.7-4.5) L 05/30/18 17:20 AST 51 Units/L (13-39) H 05/30/18 17:20 ALT 132 Units/L (7-52) H 05/30/18 17:20 - Diagnostic Findings Additional findings: MRI OF THE BRAIN WITHOUT CONTRAST 05/30/2018 10:59 pm TECHNIQUE: Multiplanar multisequence MRI of the brain was performed without the administration of intravenous contrast. COMPARISON: None. HISTORY: ORDERING SYSTEM PROVIDED HISTORY: r/o stroke Additional tech notes: [facility] [address] [facility] Syncope, headache FINDINGS: INTRACRANIAL STRUCTURES/VENTRICLES: There is no acute infarct. No mass effect or midline shift. No evidence of an acute intracranial hemorrhage. The ventricles and sulci are normal in size and configuration. The sellar/suprasellar regions appear unremarkable. The normal signal voids within the major intracranial vessels appear maintained. ORBITS: The visualized portion of the orbits demonstrate no acute abnormality. SINUSES: The visualized paranasal sinuses and mastoid air cells are well aerated. BONES/SOFT TISSUES: The bone marrow signal intensity appears normal. The soft tissues demonstrate no acute abnormality. MR/MR head/brain wo con IMPRESSION: No acute infarct. Unremarkable brain MRI. D/ / Rosendo Law MD / Rosendo Law MD Interpreting Provider: Rosendo Law MD Consult Discharge Plan - Plan Referrals: NONE,PCP [Primary Care Provider] -
[2018-05-31] MEDS: Acetaminophen 325 MG TABLET PO PRN ×2 (10:53→19:43)
[2018-05-31] MEDS: Fluticasone Propionate Nasal 50 MCG/SPRAY BOTTLE NS SCH (10:54)
[2018-05-31] MEDS ORDERED: 0.9 % Sodium Chloride 1,000 ML IVC SCH (10:55)
--- NOTE | 2018-05-31 16:45 | Electrocardiograph Report ---
[address] [address] Test Date: 2018-05-31 Pat Name: Donovan Aguirre Department: 113 Room: 3B Gender: M [employer] Installer: MARGARET : 1970 Requested By: [id number] Order Number: [id number] Reading MD: Jeffrey Vaughn Measurements Intervals [place] Rate: 77 P: 24 WI: 178 QRS: -7 QRSD: 91 T: 15 QT: 428 QTc: 460 Interpretive Statements SINUS RHYTHM Electronically Signed On 05-31-2018 16:44:24 EDT by Jeffrey Vaughn
[2018-05-31] MEDS: Nicotine 21 MG PATCH.TD24 TD SCH (19:28)
--- NOTE | 2018-05-31 21:46 | Internal Med Progress Note ---
Date of Encounter: 05/31/18 Time of Encounter: 21:45 - Assessment and plan (1) TIA (transient ischemic attack) Current Visit: Yes Status: Acute (2) Syncope Current Visit: Yes Status: Acute Qualifiers: Syncope type: unspecified Qualified Code(s): R55 - Syncope and collapse (3) Hypertension Current Visit: Yes Status: Acute Qualifiers: Hypertension type: essential hypertension Qualified Code(s): I10 - Essential (primary) hypertension (4) Bipolar disorder, mixed Current Visit: Yes Status: Chronic - Time Spent With Patient Total time spent is greater than 50% in coordination of care (as documented) at patient's floor/unit and/or counseling patient: - Subjective Interval history: .. The patient feels weak. His left-sided weakness/difficulty speaking subsided. He gets physical therapy/occupational therapy. Denies headache. Denies dizziness/lightheadedness. Denies chest pain. Denies difficulty breathing. OBJECTIVE: .. Skin: Free of rash and discoloration. ENMT: Oral/pharyngeal mucosa is normal in appearance. Eyes: Sclera is white. There is no discharge from eyes. Respiratory: Normal breath sounds; no crackles or wheezes. CV: Heart is regular; no gallop or murmur. GI: Abdomen is soft and not tender. There is no palpable mass or visceromegaly. Neuro: There is no focal deficits. ASSESSMENT AND PLAN: .. Possible TIA. See notes from neurology. Telemetry is normal. Echocardiogram is normal. Carotid duplex is normal. CT of brain failed to show any abnormalities. Will continue PT and OT. The patient would like to get some rehab for his weakness. Possible syncope. It is not clear, if he lost consciousness. Telemetry is normal. He does have her severe psychiatric illness. Hypertension. Under control. He is not taking his antihypertensives at this time. Disposition: Possible placement in ECF soon. - Constitutional Vitals: Temp Pulse Resp BP Pulse Ox 98.2 F 99 18 162/87 94 05/31/18 18:33 05/31/18 18:33 05/31/18 18:33 05/31/18 18:33 05/31/18 18:33 Internal Medicine: Result - Labs CBC & Chem 7: 05/31/18 05:55 05/31/18 00:47 Labs: Short CBC 05/31/18 Range/Units 05:55 WBC 5.8 (4.3-11.1) K/mcL Hgb 12.9 (12.9-16.9) g/dL Hct 37.6 (37.5-50.1) % Plt Count 163 (140-400) K/mcL Neutrophils # 2.5 (1.6-8.9) K/mcL BMP 05/31/18 00:47 Sodium 136 Potassium 3.5 Chloride 108 H Carbon Dioxide 22 L BUN 19 Creatinine 0.76 Glucose 101 Calcium 8.6 Cardiac Enzymes 05/31/18 05/31/18 Range/Units 00:47 05:55 Troponin I < 0.03 < 0.03 (< 0.04) ng/mL Urine 05/31/18 Range/Units 01:19 Urine Color Yellow (Yellow) Urine Clarity Clear (Clear) Urine pH 5.5 (5.0-8.0) pH Units Ur Specific Alexis 1.021 (1.010-1.025) Urine Protein Negative (Neg-Trace) mg/dL Urine Glucose (UA) Normal (Normal) mg/dL - ABG Interpretation ABG results: PT/INR, D-dimer PT 13.5 Seconds (9.4-12.1) H 05/30/18 17:20 D-Dimer 266 ng/mLFEU (0-500) 05/30/18 17:20 - Impressions Impressions Echocardiogram 05/31/18 20:51 Impressions: LVEF 60-65%. Normal LV chamber size, wall thickness and function. Normal left ventricular diastolic function. Normal right ventricular structure and function. No evidence of a PFO with agitated saline contrast. No significant valvular dysfunction. No evidence of pulmonary hypertension. Left Ventricular Wall Motion: Rest Echo Findings All wall segments showed normal motion. Findings: Study Quality * Technically adequate exam. ECG Findings * Normal sinus rhythm. Left Ventricle * LVEF 60-65%. * Normal LV chamber size, wall thickness and function. * Normal left ventricular diastolic function. Right Ventricle * Normal right ventricular structure and function. Left Atrium * Mildly dilated left atrium. Right Atrium * Mildly dilated right atrium. Interatrial Septum * No evidence of a PFO with agitated saline contrast. Aortic Valve * Trileaflet aortic valve with normal function. * No aortic regurgitation. * No aortic stenosis. Mitral Valve * Normal mitral valve structure and function. * No mitral regurgitation. * No mitral stenosis. Tricuspid Valve * Normal tricuspid valve structure and function. * Trace tricuspid regurgitation. * No evidence of pulmonary hypertension. Pulmonic Valve * Normal pulmonic valve structure and function. * No pulmonic regurgitation. Aorta * Normally sized aortic root. Pericardium * The pericardium appears normal. IVC * Normal IVC dimensions and inspiratory collapse. Pulmonary Artery * Normal visualized portions of the main pulmonary artery. Consult Discharge Plan - Plan Referrals: NONE,PCP [Primary Care Provider] -
[2018-06-01] MEDS: *HR* Heparin 5,000 UNIT/ML VIAL SQ SCH ×3 (06:00→21:27)
[2018-06-01] MEDS: Aspirin Enteric Coated 81 MG Tablet PO SCH (08:34)
[2018-06-01] MEDS: hydrOXYzine pamoate 25 MG CAPSULE PO SCH ×3 (08:34→20:09)
[2018-06-01] MEDS: Cholecalciferol (D-3) 1,000 UNIT TABLET PO SCH (08:34)
[2018-06-01] MEDS: Loratadine 10 MG TABLET PO SCH (08:34)
[2018-06-01] MEDS: BuPROPion XL (24 HR) 150 MG TABLET PO SCH (08:34)
[2018-06-01] MEDS: Nicotine 21 MG PATCH.TD24 TD SCH (08:35)
[2018-06-01] MEDS: Fluticasone Propionate Nasal 50 MCG/SPRAY BOTTLE NS SCH (09:00)
[2018-06-01] MEDS: Mag Hydrox/Al Hydrox/Simeth 30 ML UDC PO PRN ×2 (10:44→21:31)
--- NOTE | 2018-06-01 12:50 | Internal Med Progress Note ---
Date of Encounter: 06/01/18 Time of Encounter: 12:42 - Assessment and plan (1) Weakness of left side of body Current Visit: Yes Status: Acute Assessment and plan: States he continues to have weakness of the left lower extremity gait is normal and he has a minor limp noted, signs and symptoms are improving daily. Monitor , physical therapy has evaluated the patient report is pending (2) Syncope Current Visit: Yes Status: Acute Assessment and plan: We will continue to encourage patient to rise from a lying position to a sitting position and slightly with positional change had movements Qualifiers: Syncope type: unspecified Qualified Code(s): R55 - Syncope and collapse (3) Bipolar disorder, mixed Current Visit: Yes Status: Chronic Assessment and plan: Continue current medications (4) Hypertension Current Visit: Yes Status: Acute Assessment and plan: The patient remains elevated at 151/ 85units sitting position will continue with medications and to monitor Qualifiers: Hypertension type: essential hypertension Qualified Code(s): I10 - Essential (primary) hypertension (5) DVT prophylaxis Current Visit: Yes Status: Acute - Time Spent With Patient Total time spent is greater than 50% in coordination of care (as documented) at patient's floor/unit and/or counseling patient: - Subjective Interval history: Mr. Aguirre is a 48-year-old male who was admitted for syncope weakness hypertension TI A, EKG changes. Troponins have trended negative less than 0.033. Echocardiogram shows LVEF greater than 65% with normal LV chamber size normal left ventricular diastolic function normal right ventricle structure and function no significant valvular dysfunction and no evidence of pulmonary hypertension. MRI of the brain was negative for any acute infarct. Today he continues to say that he has left leg weakness he he feels that it is improving with his walking about the room. He denies any chest pain shortness of breath weakness of the upper extremities. States that signs and symptoms of the TIA with slurred speech and mental confusion has completely resolved. He states he does continue to have mild dizziness with positional change from lying to sitting and sitting to standing resolves within a matter of seconds. He was evaluated today per physical therapy and that report is pending. - Constitutional Vitals: Temp Pulse Resp BP Pulse Ox 98.2 F 83 18 151/85 96 06/01/18 10:59 06/01/18 10:59 06/01/18 10:59 06/01/18 10:59 06/01/18 10:59 General appearance: Present: A&O X 3, morbidly obese, pleasant, no acute distress - Respiratory Respiratory exam: Present: CTAB - Cardiovascular Cardiovascular exam: Present: RRR - Extremities Exam Extremities exam: Present: full ROM, normal capillary refill, normal inspection , radial pulses palpable and symmetrical - Expanded Lower Extremities Exam Lower Leg exam: Present: full ROM, normal inspection (SLR of left and right lower extremity negative, strength testing upper and lower ext are equal with grasp, and push pull manover of lower ext. Noted minor,limp left leg, normal gait ) - Neurological Exam Neurological exam: Present: alert, normal gait, oriented X3, reflexes normal, no focal deficits, strengths equal and symetr throughout Internal Medicine: Result - Labs CBC & Chem 7: 05/31/18 05:55 05/31/18 00:47 - ABG Interpretation ABG results: PT/INR, D-dimer PT 13.5 Seconds (9.4-12.1) H 05/30/18 17:20 D-Dimer 266 ng/mLFEU (0-500) 05/30/18 17:20 - Impressions Impressions Echocardiogram 05/31/18 20:51 Impressions: LVEF 60-65%. Normal LV chamber size, wall thickness and function. Normal left ventricular diastolic function. Normal right ventricular structure and function. No evidence of a PFO with agitated saline contrast. No significant valvular dysfunction. No evidence of pulmonary hypertension. Left Ventricular Wall Motion: Rest Echo Findings All wall segments showed normal motion. Findings: Study Quality * Technically adequate exam. ECG Findings * Normal sinus rhythm. Left Ventricle * LVEF 60-65%. * Normal LV chamber size, wall thickness and function. * Normal left ventricular diastolic function. Right Ventricle * Normal right ventricular structure and function. Left Atrium * Mildly dilated left atrium. Right Atrium * Mildly dilated right atrium. Interatrial Septum * No evidence of a PFO with agitated saline contrast. Aortic Valve * Trileaflet aortic valve with normal function. * No aortic regurgitation. * No aortic stenosis. Mitral Valve * Normal mitral valve structure and function. * No mitral regurgitation. * No mitral stenosis. Tricuspid Valve * Normal tricuspid valve structure and function. * Trace tricuspid regurgitation. * No evidence of pulmonary hypertension. Pulmonic Valve * Normal pulmonic valve structure and function. * No pulmonic regurgitation. Aorta * Normally sized aortic root. Pericardium * The pericardium appears normal. IVC * Normal IVC dimensions and inspiratory collapse. Pulmonary Artery * Normal visualized portions of the main pulmonary artery. Consult Discharge Plan - Plan Referrals: NONE,PCP [Primary Care Provider] -
--- NOTE | 2018-06-01 15:31 | Neurology Progress Note ---
Date of Encounter: 06/01/18 Time of Encounter: 10:00 Assessment and Plan (1) Weakness of left side of body Current Visit: Yes Status: Acute This patient was admitted with subjective weakness of the left side of the body with negative workup for at the moment no evidence of any stroke on imaging studies , not really convinced that it was a true TIA Workup has been negative including MRI of the brain echo and carotid. Patient also a lot of behavioral and psych issues suggest follow-up with psychiatrist. From neurology standpoint patient is stable continue on one aspirin TO discharge from neurology standpoint Subjective Interval history: Patient is stable denies any other new symptoms or any other new problems says that his balance is better and he is able to get up and walk. Objective - Constitutional Vitals: Temp Pulse Resp BP Pulse Ox 98.6 F 79 16 153/81 95 06/01/18 15:26 06/01/18 15:26 06/01/18 15:26 06/01/18 15:26 06/01/18 15:26 - Neurological Exam Sensorimotor examination: Present: intact Motor Examination: Present: grossly full strength in all extremities, other ( Left side is having sublet weakness but i did not recognize pronator drift, muscle strength is at 4+/5 both upper and lower extremities) Motor examination - right side: 4/5: deltoids, biceps, triceps, wrist flexion, wrist extension, lump machine operator, hip flexors, tibialis Anterior, quadriceps, toe extension (EHL), plantarflexion Motor examination - left side: 4/5: deltoids, biceps, triceps, wrist flexion, wrist extension, hip flexors, lump machine operator, quadriceps, tibialis Anterior, toe extension (EHL), plantarflexion Sensation intact: Present: intact Posture: Present: other (None) Reflex and gait examination: other (Gait not assessed) Reflexes: Biceps: 1+, Triceps: 1+, Brachioradialis: 1+, Patella: 1+, Achilles: 1 + Mental Status Examination: Present: awake, alert, oriented to person, oriented to place, oriented to time, follows commands appropriately, answers questions appropriately, no agnosia, no aphasia, no aproxia Cranial nerve examination: Present: PERRL, EOMI, visual ashton intact, corneal reflexes brisk symmetrically, sensory to face intact, mastication intact, no facial asymmetry is present, no dysarthria, hearing is intact symmetrically, soft palate elevates bilaterally upon phonation, gag reflex intact, flexes SCM and trapezius muscles symmetrically with full power, tongue protrudes midline, no atrophy or facial fasiculations present Results - Laboratory Findings CBC and BMP: 05/31/18 05:55 05/31/18 00:47 Abnormal lab findings: Abnormal lab results PT 13.5 Seconds (9.4-12.1) H 05/30/18 17:20 Chloride 108 mEq/L (98-107) H 05/31/18 00:47 Carbon Dioxide 22 mEq/L (23-29) L 05/31/18 00:47 POC Glucose 106 mg/dL (70-99) H 05/31/18 00:14 Hemoglobin A1c 5.9 % (-5.6) H 05/31/18 05:55 Phosphorus 2.6 mg/dL (2.7-4.5) L 05/30/18 17:20 AST 51 Units/L (13-39) H 05/30/18 17:20 ALT 132 Units/L (7-52) H 05/30/18 17:20 Consult Discharge Plan - Plan Referrals: NONE,PCP [Primary Care Provider] -
--- NOTE | 2018-06-01 20:55 | Electrocardiograph Report ---
[place] [facility] Test Date: 2018-05-30 Pat Name: Donovan Aguirre Department: 103 Room: 3B54 Gender: M Patient Accounts Manager: : 1970 Requested By: [id number] Order Number: [id number] Reading MD: Aguilar Barraza Measurements Intervals Berry Rate: 112 P: 24 KS: 174 QRS: -7 QRSD: 95 T: 28 QT: 264 QTc: 331 Interpretive Statements SINUS TACHYCARDIA NONSPECIFIC T-WAVE ABNORMALITY ABNORMAL RHYTHM ECG Electronically Signed On 06-01-2018 20:53:32 EDT by Aguilar Barraza
[2018-06-02] MEDS: *HR* Heparin 5,000 UNIT/ML VIAL SQ SCH ×2 (05:58→14:22)
[2018-06-02] MEDS: hydrOXYzine pamoate 25 MG CAPSULE PO SCH (09:24)
[2018-06-02] MEDS: BuPROPion XL (24 HR) 150 MG TABLET PO SCH (09:24)
[2018-06-02] MEDS: Loratadine 10 MG TABLET PO SCH (09:24)
[2018-06-02] MEDS: Aspirin Enteric Coated 81 MG Tablet PO SCH (09:24)
[2018-06-02] MEDS: Cholecalciferol (D-3) 1,000 UNIT TABLET PO SCH (09:25)
[2018-06-02] MEDS: Nicotine 21 MG PATCH.TD24 TD SCH (09:27)
[2018-06-02 11:07] VITALS: BP 155/96
[2018-06-02] MEDS: Fluticasone Propionate Nasal 50 MCG/SPRAY BOTTLE NS SCH (11:55)
--- NOTE | 2018-06-02 12:02 | Discharge Summary ---
- NOTES TO OUTPATIENT PROVIDER Notes to Outpatient Provider: f/u with PCP within 2 weeks. Date of Encounter: 06/02/18 Time of Encounter: 12:01 - Discharge Diagnosis (1) Bipolar disorder, mixed Priority: Secondary Status: Chronic (2) Syncope Priority: Primary Status: Acute Qualifiers: Syncope type: unspecified Qualified Code(s): R55 - Syncope and collapse (3) Weakness of left side of body Priority: Primary Status: Acute (4) DVT prophylaxis Priority: Primary Status: Acute (5) Hypertension Priority: Secondary Status: Chronic Qualifiers: Hypertension type: essential hypertension Qualified Code(s): I10 - Essential (primary) hypertension Hospital course: Mr. Aguirre is a 48-year-old male who was admitted for syncope, and left side weakness. ED workup revealed negative orthostatic BP. Troponins have trended negative less than 0.033. Echocardiogram shows LVEF greater than 65% with normal LV chamber size normal left ventricular diastolic function normal right ventricle structure and function no significant valvular dysfunction and no evidence of pulmonary hypertension. MRI of the brain was negative for any acute infarct. He continues to say that he has left leg weakness he he feels that it is improving with his walking about the room. He denies any chest pain shortness of breath weakness of the upper extremities. States that signs and symptoms of the TIA with slurred speech and mental confusion has completely resolved. He states he does continue to have mild dizziness with positional change from lying to sitting and sitting to standing resolves within a matter of seconds. Neurology was consulted and recommended daily aspirin. Patient also a lot of behavioral and psych issues suggest follow-up with psychiatrist. He will be discharged home today with f/u with PCP as scheduled. Time spent discussing smoking cessation with patient: 3 to 10 minutes - Time Spent with Patient Total time spent providing and/or coordinating discharge services: Less than 30 minutes - Discharge Medications Prescriptions: Aspirin Enteric Coated [Aspirin EC] 81 mg PO DAILY #30 tablet.dr Meehan Medications: Benztropine [Cogentin] 1 mg PO BID 05/30/18 [History] Bupropion HCl [Wellbutrin Xl] 300 mg PO DAILY 05/30/18 [History] Cetirizine HCl [All Day Allergy] 10 mg PO DAILY 05/30/18 [History] Cholecalciferol (D-3) [Vitamin D] 1,000 unit PO DAILY 05/30/18 [History] Fluticasone Propionate Nasal [Flonase] 1 spr NS DAILY 05/30/18 [History] Haloperidol 2 mg PO BID 05/30/18 [History] HydrOXYzine Pamoate [Vistaril] 50 mg PO TID 05/30/18 [History] Propranolol [Inderal] 20 mg PO DAILY 05/30/18 [History] Quetiapine Fumarate [Seroquel] 25 mg PO BID 05/30/18 [History] Quetiapine Fumarate [Seroquel] 300 mg PO HS 05/30/18 [History] cloNIDine HCl [CloNIDine HCl] 0.1 mg PO DAILY 05/30/18 [History] hydroCHLOROthiazide [Hydrochlorothiazide] 12.5 mg PO DAILY 05/30/18 [History] Aspirin Enteric Coated [Aspirin EC] 81 mg PO DAILY #30 tablet. 06/02/18 [Rx] Allergies/Adverse Reactions: 3 Allergy/AdvReac Type Severity Reaction Status Date / Time No Known Allergies Allergy Verified 03/13/18 15:20 Date of admission: 05/30/18 22:01 Primary care physician: PCP NONE Anticipated date of discharge: 06/02/18 - Constitutional Vitals: Temp Pulse Resp BP Pulse Ox 97.7 F 79 16 155/96 96 06/02/18 11:06 06/02/18 11:06 06/02/18 11:06 06/02/18 11:06 06/02/18 11:06 General appearance: Present: A&O X 3, morbidly obese, pleasant, no acute distress Exam: PHYSICAL EXAMINATION: GENERAL APPEARANCE: The patient is alert, oriented and in no acute distress. HEENT: Head is normocephalic. The sinuses are nontender. Pupils are equal and reactive. The nares are patent. Oropharynx clear without lesions. NECK: Supple without lymphadenopathy. HEART: Regular rate and rhythm. LUNGS: No crackles or wheezes are heard. ABDOMEN: Soft, nontender, nondistended with good bowel sounds heard. Inguinal area is normal. EXTREMITIES: Without cyanosis, clubbing or edema. NEUROLOGICAL: Gross nonfocal. SKIN: Warm and dry without any rash. - Patient Status Disposition: Home, Self-Care Condition: Good Functional capacity at discharge: independent ambulation Overall status at discharge: patient is back to baseline - Discharge Instructions Follow Up With: NONE,PCP [Primary Care Provider] - - Diet and Activity Activity: increase activity as tolerated Diet: low fat, low cholesterol, low salt diet
== END 2018-06-02 15:28 | disposition home or self-care (01) ==
LOC: EMEROO 16:20 → 3BNU 16:20 → SUATTDRO 22:01 → 3BNU 23:34
PROVIDERS: ADMIT Family Medicine; ATTEND Internal Medicine